=== PATIENT | male | born 1940 | race Caucasian/White ===

== ENCOUNTER → 2017-06-20 | Outpatient (CLI) | payer MEDICARE ==
[2017-06-20 13:49] LABS: BASOPHILS ABSOLUTE AUTO 0.12 K/mm3 (0.00-0.23); BASOPHILS PERCENT AUTO 1 % (0-2); EOSINOPHILS ABSOLUTE AUTO 0.59 K/mm3 (0.00-0.68); EOSINOPHILS PERCENT AUTO 6 % (0-6); Hemoglobin 11.8 g/dL (13.5-17.5); IMMATURE GRAN ABSOLUTE AUTO 0.03 K/mm3 (0.00-0.10); IMMATURE GRAN PERCENT AUTO 0 % (0-1); LYMPHOCYTES ABSOLUTE AUTO 3.35 K/mm3 (0.84-5.20); LYMPHOCYTES PERCENT AUTO 32 % (21-46); MONOCYTES ABSOLUTE AUTO 0.85 K/mm3 (0.16-1.47); MONOCYTES PERCENT AUTO 8 % (4-13); Mean Corpuscular HGB 29.3 pg (26.0-34.0); Mean Corpuscular HGB Conc 31.9 g/dL (31.5-36.5); Mean Corpuscular Volume 92 fL (80-100); Mean Platelet Volume 10.3 fL (9.1-12.4); NEUTROPHILS ABSOLUTE AUTO 5.67 K/mm3 (1.96-9.15); NEUTROPHILS PERCENT AUTO 53 % (41-73); Platelet Count 243 K/mm3 (150-400); RDW Coefficient Variation 13.2 % (11.7-14.2); RDW Standard Deviation 43.8 fL (35.1-46.3); Red Blood Cell Count 4.03 M/mm3 (4.30-5.90); White Blood Cell Count 10.61 K/mm3 (4.00-11.30)
[2017-06-20 14:21] LABS: Alanine Aminotransfer (ALT/SGP 30 U/L (12-78); Albumin, Blood 3.8 g/dL (3.4-5.0); Albumin/Globulin Ratio 0.8 (0.8-1.8); Alk Phos 108 U/L (50-136); Anion Gap 9 mmol/L (6-16); Aspartate Aminotrans (AST/SGOT 17 U/L (12-37); Bilirubin, Total 0.4 mg/dL (0.1-1.0); Blood Urea Nitrogen 32 mg/dL (8-24); Bun/Creatinine Ratio 27.8 (12.0-20.0); CO2, Blood 25 mmol/L (21-32); Calcium, Blood 9.7 mg/dL (8.5-10.1); Chloride, Blood 103 mmol/L (98-108); Cholesterol 178 mg/dL (50-200); Creatinine, Blood 1.15 mg/dL (0.60-1.20); Globulin, Blood 4.6 g/dL (2.2-4.0); Glomerular Filtration Rate >60 (60-); Glucose, Blood 273 mg/dL (70-99); HDL Cholesterol 44 mg/dL (>39); LDL/HDL RATIO 1.7; Low Density Lipoprotein Chol 77 mg/dL (0-110); Potassium, Blood 4.7 mmol/L (3.5-5.5); Sodium, Blood 137 mmol/L (136-145); Total Protein, Blood 8.4 g/dL (6.4-8.2); Triglycerides 287 mg/dL (30-160); Very Low Density Lipoprot Chol 57 mg/dL (6-32)
== END ==
LOC: LAB SHORT 13:27 → LAB 13:27
PROVIDERS: Nurse Practitioner Family
DX: E11.9 Type 2 diabetes mellitus without complications (principal); E55.9 Vitamin D deficiency, unspecified; E78.5 Hyperlipidemia, unspecified; I10 Essential (primary) hypertension; R53.83 Other fatigue
CPT/HCPCS: 80053; 80061; 82306; 84443; 85025

== ENCOUNTER → 2017-07-06 | Outpatient (CLI) | payer MEDICARE | END | disposition home or self-care (01) | LOC: LAB SHORT 13:38 → LAB 13:38 | DX: E11.621 Type 2 diabetes mellitus with foot ulcer (principal); L97.519 Non-pressure chronic ulcer of other part of right foot with unspecified severity; F11.20 Opioid dependence, uncomplicated; F17.200 Nicotine dependence, unspecified, uncomplicated | CPT/HCPCS: 87070; 87077; 87186; 87205 ==

== ENCOUNTER → 2017-11-08 | Outpatient (CLI) | payer MEDICARE | END | disposition home or self-care (01) | LOC: LAB SHORT 14:02 → LAB 14:02 | DX: E11.49 Type 2 diabetes mellitus with other diabetic neurological complication (principal); L08.9 Local infection of the skin and subcutaneous tissue, unspecified | CPT/HCPCS: 87070; 87077; 87147; 87186; 87205 ==

== ENCOUNTER 2018-07-13 07:35 | Day surgery (SDC) | payer MEDICARE | END 2018-07-13 23:05 | disposition home or self-care (01) | LOC: WOUND 07:35 | DX: E11.622 Type 2 diabetes mellitus with other skin ulcer (principal); E11.621 Type 2 diabetes mellitus with foot ulcer; L97.812 Non-pressure chronic ulcer of other part of right lower leg with fat layer exposed; L89.893 Pressure ulcer of other site, stage 3; E11.42 Type 2 diabetes mellitus with diabetic polyneuropathy; E11.51 Type 2 diabetes mellitus with diabetic peripheral angiopathy without gangrene; I87.2 Venous insufficiency (chronic) (peripheral); F41.9 Anxiety disorder, unspecified; F32.9 Major depressive disorder, single episode, unspecified; E78.5 Hyperlipidemia, unspecified; I10 Essential (primary) hypertension; I25.10 Atherosclerotic heart disease of native coronary artery without angina pectoris; F17.210 Nicotine dependence, cigarettes, uncomplicated | CPT/HCPCS: G0463 ==

== ENCOUNTER 2018-07-18 10:42 | Day surgery (SDC) | payer MEDICARE | END 2018-07-18 22:44 | disposition home or self-care (01) | LOC: WOUND 10:42 | DX: E11.622 Type 2 diabetes mellitus with other skin ulcer (principal); L97.812 Non-pressure chronic ulcer of other part of right lower leg with fat layer exposed; E11.621 Type 2 diabetes mellitus with foot ulcer; L97.412 Non-pressure chronic ulcer of right heel and midfoot with fat layer exposed; L89.613 Pressure ulcer of right heel, stage 3; E11.42 Type 2 diabetes mellitus with diabetic polyneuropathy; I87.2 Venous insufficiency (chronic) (peripheral); I25.10 Atherosclerotic heart disease of native coronary artery without angina pectoris; I10 Essential (primary) hypertension; E11.51 Type 2 diabetes mellitus with diabetic peripheral angiopathy without gangrene; F17.200 Nicotine dependence, unspecified, uncomplicated; E78.5 Hyperlipidemia, unspecified ==

== ENCOUNTER 2018-07-27 00:18 | Day surgery (SDC) | payer MEDICARE | END 2018-07-28 23:00 | disposition home or self-care (01) | LOC: WOUND 00:18 | DX: E11.622 Type 2 diabetes mellitus with other skin ulcer (principal); L97.812 Non-pressure chronic ulcer of other part of right lower leg with fat layer exposed; L89.613 Pressure ulcer of right heel, stage 3; G89.29 Other chronic pain; E11.40 Type 2 diabetes mellitus with diabetic neuropathy, unspecified; F17.200 Nicotine dependence, unspecified, uncomplicated; I87.2 Venous insufficiency (chronic) (peripheral); I25.10 Atherosclerotic heart disease of native coronary artery without angina pectoris; I10 Essential (primary) hypertension; E11.51 Type 2 diabetes mellitus with diabetic peripheral angiopathy without gangrene | CPT/HCPCS: Q4196 ==

== ENCOUNTER 2018-08-03 00:17 | Day surgery (SDC) | payer MEDICARE | END 2018-08-03 23:17 | disposition home or self-care (01) | LOC: WOUND 00:17 | DX: E11.622 Type 2 diabetes mellitus with other skin ulcer (principal); L97.811 Non-pressure chronic ulcer of other part of right lower leg limited to breakdown of skin; L89.893 Pressure ulcer of other site, stage 3; I87.2 Venous insufficiency (chronic) (peripheral); E11.42 Type 2 diabetes mellitus with diabetic polyneuropathy; E11.40 Type 2 diabetes mellitus with diabetic neuropathy, unspecified; E11.51 Type 2 diabetes mellitus with diabetic peripheral angiopathy without gangrene; I25.10 Atherosclerotic heart disease of native coronary artery without angina pectoris; I10 Essential (primary) hypertension; F41.9 Anxiety disorder, unspecified; F32.9 Major depressive disorder, single episode, unspecified; E78.5 Hyperlipidemia, unspecified; F17.200 Nicotine dependence, unspecified, uncomplicated | CPT/HCPCS: Q4196 ==

== ENCOUNTER 2018-08-10 00:35 | Day surgery (SDC) | payer MEDICARE | END 2018-08-10 22:49 | disposition home or self-care (01) | LOC: WOUND 00:35 | DX: E11.621 Type 2 diabetes mellitus with foot ulcer (principal); E11.622 Type 2 diabetes mellitus with other skin ulcer; L97.812 Non-pressure chronic ulcer of other part of right lower leg with fat layer exposed; L97.511 Non-pressure chronic ulcer of other part of right foot limited to breakdown of skin; E11.42 Type 2 diabetes mellitus with diabetic polyneuropathy; E11.51 Type 2 diabetes mellitus with diabetic peripheral angiopathy without gangrene; E11.40 Type 2 diabetes mellitus with diabetic neuropathy, unspecified; I87.2 Venous insufficiency (chronic) (peripheral); I10 Essential (primary) hypertension; F41.9 Anxiety disorder, unspecified; F32.9 Major depressive disorder, single episode, unspecified; E78.5 Hyperlipidemia, unspecified; F17.200 Nicotine dependence, unspecified, uncomplicated; I25.10 Atherosclerotic heart disease of native coronary artery without angina pectoris | CPT/HCPCS: Q4196 ==

== ENCOUNTER 2018-08-17 00:35 | Day surgery (SDC) | payer MEDICARE | END 2018-08-17 23:08 | disposition home or self-care (01) | LOC: WOUND 00:35 | DX: L89.613 Pressure ulcer of right heel, stage 3 (principal); E11.621 Type 2 diabetes mellitus with foot ulcer; L97.412 Non-pressure chronic ulcer of right heel and midfoot with fat layer exposed; I87.2 Venous insufficiency (chronic) (peripheral); E11.42 Type 2 diabetes mellitus with diabetic polyneuropathy; G89.29 Other chronic pain; E78.5 Hyperlipidemia, unspecified; I10 Essential (primary) hypertension; F17.200 Nicotine dependence, unspecified, uncomplicated | CPT/HCPCS: Q4196 ==

== ENCOUNTER 2018-08-31 08:54 | Day surgery (SDC) | payer MEDICARE, OTHER | END 2018-09-01 00:03 | disposition home or self-care (01) | LOC: WOUND 08:54 | DX: L89.893 Pressure ulcer of other site, stage 3 (principal); E11.42 Type 2 diabetes mellitus with diabetic polyneuropathy; E11.51 Type 2 diabetes mellitus with diabetic peripheral angiopathy without gangrene; I73.9 Peripheral vascular disease, unspecified; I87.2 Venous insufficiency (chronic) (peripheral); I25.10 Atherosclerotic heart disease of native coronary artery without angina pectoris; I10 Essential (primary) hypertension; F41.9 Anxiety disorder, unspecified; F32.9 Major depressive disorder, single episode, unspecified; E78.5 Hyperlipidemia, unspecified; F17.200 Nicotine dependence, unspecified, uncomplicated | CPT/HCPCS: Q4196 ==

== ENCOUNTER 2018-09-07 08:41 | Day surgery (SDC) | payer MEDICARE, OTHER | END 2018-09-07 23:35 | disposition home or self-care (01) | LOC: WOUND 08:41 | DX: L89.893 Pressure ulcer of other site, stage 3 (principal); E11.621 Type 2 diabetes mellitus with foot ulcer; L97.512 Non-pressure chronic ulcer of other part of right foot with fat layer exposed; I87.2 Venous insufficiency (chronic) (peripheral); E11.42 Type 2 diabetes mellitus with diabetic polyneuropathy | CPT/HCPCS: 87071; 87075; 87077; 87186; 87205; Q4196 ==

== ENCOUNTER 2018-09-14 08:41 | Day surgery (SDC) | payer MEDICARE, OTHER | END 2018-09-14 23:28 | disposition home or self-care (01) | LOC: WOUND 08:41 | DX: L89.613 Pressure ulcer of right heel, stage 3 (principal); E11.621 Type 2 diabetes mellitus with foot ulcer; L97.511 Non-pressure chronic ulcer of other part of right foot limited to breakdown of skin; E11.40 Type 2 diabetes mellitus with diabetic neuropathy, unspecified; F17.200 Nicotine dependence, unspecified, uncomplicated; F41.8 Other specified anxiety disorders; I10 Essential (primary) hypertension; E78.5 Hyperlipidemia, unspecified; E11.42 Type 2 diabetes mellitus with diabetic polyneuropathy; I25.10 Atherosclerotic heart disease of native coronary artery without angina pectoris | CPT/HCPCS: Q4196 ==

== ENCOUNTER 2018-09-28 08:39 | Day surgery (SDC) | payer MEDICARE, OTHER | END 2018-09-29 00:15 | disposition home or self-care (01) | LOC: WOUND 08:39 | DX: L89.893 Pressure ulcer of other site, stage 3 (principal); E11.42 Type 2 diabetes mellitus with diabetic polyneuropathy; E11.51 Type 2 diabetes mellitus with diabetic peripheral angiopathy without gangrene; I73.9 Peripheral vascular disease, unspecified; I10 Essential (primary) hypertension; I25.10 Atherosclerotic heart disease of native coronary artery without angina pectoris; I87.2 Venous insufficiency (chronic) (peripheral); F41.9 Anxiety disorder, unspecified; F32.9 Major depressive disorder, single episode, unspecified; E78.5 Hyperlipidemia, unspecified; F17.200 Nicotine dependence, unspecified, uncomplicated ==

== ENCOUNTER 2018-10-05 01:00 | Day surgery (SDC) | payer MEDICARE, OTHER | END 2018-10-05 23:50 | disposition home or self-care (01) | LOC: WOUND 01:00 | PROC: 0JBQ0ZZ Excision of Right Foot Subcutaneous Tissue and Fascia, Open Approach (ICD-10-PCS; principal; 2018-10-05) | DX: E11.621 Type 2 diabetes mellitus with foot ulcer (principal); L97.412 Non-pressure chronic ulcer of right heel and midfoot with fat layer exposed; E11.40 Type 2 diabetes mellitus with diabetic neuropathy, unspecified; I10 Essential (primary) hypertension; E11.42 Type 2 diabetes mellitus with diabetic polyneuropathy; I87.2 Venous insufficiency (chronic) (peripheral); F32.9 Major depressive disorder, single episode, unspecified; F17.200 Nicotine dependence, unspecified, uncomplicated; Z89.421 Acquired absence of other right toe(s) ==

== ENCOUNTER 2018-10-12 02:39 | Day surgery (SDC) | payer MEDICARE, OTHER | END 2018-10-12 23:19 | disposition home or self-care (01) | LOC: WOUND 02:39 | DX: E11.621 Type 2 diabetes mellitus with foot ulcer (principal); L97.511 Non-pressure chronic ulcer of other part of right foot limited to breakdown of skin; E11.42 Type 2 diabetes mellitus with diabetic polyneuropathy; I87.2 Venous insufficiency (chronic) (peripheral); E11.40 Type 2 diabetes mellitus with diabetic neuropathy, unspecified; E78.5 Hyperlipidemia, unspecified; I10 Essential (primary) hypertension; F17.200 Nicotine dependence, unspecified, uncomplicated ==

== ENCOUNTER 2018-10-19 02:15 | Day surgery (SDC) | payer MEDICARE, OTHER | END 2018-10-19 23:27 | disposition home or self-care (01) | LOC: WOUND 02:15 | DX: E11.621 Type 2 diabetes mellitus with foot ulcer (principal); L97.512 Non-pressure chronic ulcer of other part of right foot with fat layer exposed; E11.42 Type 2 diabetes mellitus with diabetic polyneuropathy; I87.2 Venous insufficiency (chronic) (peripheral) | CPT/HCPCS: 87071; 87075; 87077; 87186; 87205 ==

== ENCOUNTER 2018-10-24 00:29 | Day surgery (SDC) | payer MEDICARE, OTHER | END 2018-10-24 22:48 | disposition home or self-care (01) | LOC: WOUND 00:29 | DX: E11.621 Type 2 diabetes mellitus with foot ulcer (principal); L97.519 Non-pressure chronic ulcer of other part of right foot with unspecified severity; E11.42 Type 2 diabetes mellitus with diabetic polyneuropathy; I87.2 Venous insufficiency (chronic) (peripheral); I10 Essential (primary) hypertension; F17.200 Nicotine dependence, unspecified, uncomplicated | CPT/HCPCS: G0463 ==

== ENCOUNTER 2018-10-31 00:21 | Day surgery (SDC) | payer MEDICARE, OTHER | END 2018-10-31 23:22 | disposition home or self-care (01) | LOC: WOUND 00:21 | DX: E11.621 Type 2 diabetes mellitus with foot ulcer (principal); L97.519 Non-pressure chronic ulcer of other part of right foot with unspecified severity; E11.42 Type 2 diabetes mellitus with diabetic polyneuropathy; I87.2 Venous insufficiency (chronic) (peripheral); G89.29 Other chronic pain; E11.40 Type 2 diabetes mellitus with diabetic neuropathy, unspecified; E78.5 Hyperlipidemia, unspecified; I10 Essential (primary) hypertension | CPT/HCPCS: G0463 ==

== ENCOUNTER 2018-11-06 08:00 | Day surgery (SDC) | payer MEDICARE, OTHER | END 2018-11-06 23:00 | disposition home or self-care (01) | LOC: WOUND 08:00 | DX: E11.621 Type 2 diabetes mellitus with foot ulcer (principal); L97.412 Non-pressure chronic ulcer of right heel and midfoot with fat layer exposed; E11.42 Type 2 diabetes mellitus with diabetic polyneuropathy; I87.2 Venous insufficiency (chronic) (peripheral); I10 Essential (primary) hypertension; Z89.431 Acquired absence of right foot ==

== ENCOUNTER 2018-11-08 08:20 | Day surgery (SDC) | payer MEDICARE, OTHER | END 2018-11-08 23:34 | disposition home or self-care (01) | LOC: WOUND 08:20 | DX: E11.621 Type 2 diabetes mellitus with foot ulcer (principal); L97.519 Non-pressure chronic ulcer of other part of right foot with unspecified severity; E11.42 Type 2 diabetes mellitus with diabetic polyneuropathy; I87.2 Venous insufficiency (chronic) (peripheral); I10 Essential (primary) hypertension; E78.5 Hyperlipidemia, unspecified; F17.200 Nicotine dependence, unspecified, uncomplicated ==

== ENCOUNTER 2018-11-12 00:27 | Day surgery (SDC) | payer MEDICARE, OTHER | END 2018-11-12 22:48 | disposition home or self-care (01) | LOC: WOUND 00:27 | DX: E11.621 Type 2 diabetes mellitus with foot ulcer (principal); L97.519 Non-pressure chronic ulcer of other part of right foot with unspecified severity; E11.42 Type 2 diabetes mellitus with diabetic polyneuropathy; I87.2 Venous insufficiency (chronic) (peripheral); I10 Essential (primary) hypertension; F17.200 Nicotine dependence, unspecified, uncomplicated ==

== ENCOUNTER 2018-11-14 00:14 | Day surgery (SDC) | payer MEDICARE, OTHER | END 2018-11-14 22:46 | disposition home or self-care (01) | LOC: WOUND 00:14 | DX: E11.621 Type 2 diabetes mellitus with foot ulcer (principal); L97.519 Non-pressure chronic ulcer of other part of right foot with unspecified severity; E11.42 Type 2 diabetes mellitus with diabetic polyneuropathy; I87.2 Venous insufficiency (chronic) (peripheral); E78.5 Hyperlipidemia, unspecified; I10 Essential (primary) hypertension; F17.200 Nicotine dependence, unspecified, uncomplicated ==

== ENCOUNTER 2018-11-16 00:43 | Day surgery (SDC) | payer MEDICARE | END 2018-11-17 00:13 | disposition home or self-care (01) | LOC: WOUND 00:43 | DX: E11.621 Type 2 diabetes mellitus with foot ulcer (principal); L97.519 Non-pressure chronic ulcer of other part of right foot with unspecified severity; I87.2 Venous insufficiency (chronic) (peripheral); G89.29 Other chronic pain; E78.5 Hyperlipidemia, unspecified; I10 Essential (primary) hypertension; E11.42 Type 2 diabetes mellitus with diabetic polyneuropathy ==

== ENCOUNTER 2018-11-20 00:30 | Day surgery (SDC) | payer MEDICARE | END 2018-11-20 22:51 | disposition home or self-care (01) | LOC: WOUND 00:30 | DX: E11.621 Type 2 diabetes mellitus with foot ulcer (principal); E11.622 Type 2 diabetes mellitus with other skin ulcer; L97.519 Non-pressure chronic ulcer of other part of right foot with unspecified severity; L97.819 Non-pressure chronic ulcer of other part of right lower leg with unspecified severity; I87.2 Venous insufficiency (chronic) (peripheral); E11.42 Type 2 diabetes mellitus with diabetic polyneuropathy; E11.51 Type 2 diabetes mellitus with diabetic peripheral angiopathy without gangrene; I73.9 Peripheral vascular disease, unspecified; I10 Essential (primary) hypertension; I25.10 Atherosclerotic heart disease of native coronary artery without angina pectoris ==

== ENCOUNTER 2018-11-23 02:30 | Day surgery (SDC) | payer MEDICARE, OTHER | END 2018-11-23 22:48 | disposition home or self-care (01) | LOC: WOUND 02:30 | DX: E11.621 Type 2 diabetes mellitus with foot ulcer (principal); L97.512 Non-pressure chronic ulcer of other part of right foot with fat layer exposed; E11.42 Type 2 diabetes mellitus with diabetic polyneuropathy; I87.2 Venous insufficiency (chronic) (peripheral); I10 Essential (primary) hypertension; F17.200 Nicotine dependence, unspecified, uncomplicated ==

== ENCOUNTER 2018-11-26 07:59 | Day surgery (SDC) | payer MEDICARE | END 2018-11-26 23:00 | disposition home or self-care (01) | LOC: WOUND 07:59 | DX: E11.621 Type 2 diabetes mellitus with foot ulcer (principal); L97.419 Non-pressure chronic ulcer of right heel and midfoot with unspecified severity; I87.2 Venous insufficiency (chronic) (peripheral); E11.42 Type 2 diabetes mellitus with diabetic polyneuropathy; E11.51 Type 2 diabetes mellitus with diabetic peripheral angiopathy without gangrene; I73.9 Peripheral vascular disease, unspecified; I10 Essential (primary) hypertension; I25.10 Atherosclerotic heart disease of native coronary artery without angina pectoris; F17.200 Nicotine dependence, unspecified, uncomplicated | CPT/HCPCS: G0463 ==

== ENCOUNTER 2018-11-30 12:38 | Day surgery (SDC) | payer MEDICARE, OTHER | END 2018-11-30 22:46 | disposition home or self-care (01) | LOC: WOUND 12:38 | DX: E11.621 Type 2 diabetes mellitus with foot ulcer (principal); L97.511 Non-pressure chronic ulcer of other part of right foot limited to breakdown of skin; E11.42 Type 2 diabetes mellitus with diabetic polyneuropathy; I87.2 Venous insufficiency (chronic) (peripheral); E78.5 Hyperlipidemia, unspecified; I10 Essential (primary) hypertension ==

== ENCOUNTER 2018-12-14 01:55 | Day surgery (SDC) | payer MEDICARE, OTHER | END 2018-12-14 23:09 | disposition home or self-care (01) | LOC: WOUND 01:55 | DX: E11.621 Type 2 diabetes mellitus with foot ulcer (principal); L97.511 Non-pressure chronic ulcer of other part of right foot limited to breakdown of skin; E11.42 Type 2 diabetes mellitus with diabetic polyneuropathy; F17.200 Nicotine dependence, unspecified, uncomplicated; F41.9 Anxiety disorder, unspecified; F32.9 Major depressive disorder, single episode, unspecified; E78.5 Hyperlipidemia, unspecified; I10 Essential (primary) hypertension ==

== ENCOUNTER 2018-12-28 00:16 | Day surgery (SDC) | payer MEDICARE, OTHER | END 2018-12-28 23:50 | disposition home or self-care (01) | LOC: WOUND 00:16 | DX: E11.621 Type 2 diabetes mellitus with foot ulcer (principal); L97.519 Non-pressure chronic ulcer of other part of right foot with unspecified severity; E11.42 Type 2 diabetes mellitus with diabetic polyneuropathy; I87.2 Venous insufficiency (chronic) (peripheral); I10 Essential (primary) hypertension; F17.200 Nicotine dependence, unspecified, uncomplicated; Z89.421 Acquired absence of other right toe(s) | CPT/HCPCS: G0463 ==

== ENCOUNTER 2019-03-17 15:18 | Inpatient (IN) | payer MEDICARE ==
[~2019-03-17] VITALS: Ht 188 cm; Wt 87.4 kg
[2019-03-17 16:04] LABS: BASOPHILS ABSOLUTE AUTO 0.05 K/mm3 (0.00-0.23); BASOPHILS PERCENT AUTO 1 % (0-2); EOSINOPHILS ABSOLUTE AUTO 0.02 K/mm3 (0.00-0.68); EOSINOPHILS PERCENT AUTO 0 % (0-6); Hematocrit 30.6 % (37.0-53.0); IMMATURE GRAN ABSOLUTE AUTO 0.07 K/mm3 (0.00-0.10); IMMATURE GRAN PERCENT AUTO 1 % (0-1); LYMPHOCYTES ABSOLUTE AUTO 1.04 K/mm3 (0.84-5.20); LYMPHOCYTES PERCENT AUTO 14 % (21-46); MONOCYTES ABSOLUTE AUTO 0.69 K/mm3 (0.16-1.47); MONOCYTES PERCENT AUTO 9 % (4-13); Mean Corpuscular HGB 29.2 pg (26.0-34.0); Mean Corpuscular HGB Conc 32.7 g/dL (31.5-36.5); Mean Corpuscular Volume 90 fL (80-100); Mean Platelet Volume 9.5 fL (9.1-12.4); NEUTROPHILS ABSOLUTE AUTO 5.74 K/mm3 (1.96-9.15); NEUTROPHILS PERCENT AUTO 75 % (41-73); Platelet Count 257 K/mm3 (150-400); RDW Coefficient Variation 12.9 % (11.7-14.2); RDW Standard Deviation 41.9 fL (35.1-46.3); Red Blood Cell Count 3.42 M/mm3 (4.30-5.90); White Blood Cell Count 7.61 K/mm3 (4.00-11.30)
[2019-03-17 16:33] LABS: Alanine Aminotransfer (ALT/SGP 19 U/L (12-78); Albumin, Blood 2.6 g/dL (3.4-5.0); Albumin/Globulin Ratio 0.5 (0.8-1.8); Alk Phos 104 U/L (50-136); Anion Gap 8 mmol/L (6-16); Aspartate Aminotrans (AST/SGOT 8 U/L (12-37); Bilirubin, Total 0.6 mg/dL (0.1-1.0); Blood Urea Nitrogen 32 mg/dL (8-24); Bun/Creatinine Ratio 28.8 (12.0-20.0); CO2, Blood 22 mmol/L (21-32); Calcium, Blood 9.6 mg/dL (8.5-10.1); Chloride, Blood 101 mmol/L (98-108); Creatinine, Blood 1.11 mg/dL (0.60-1.20); Globulin, Blood 4.8 g/dL (2.2-4.0); Glomerular Filtration Rate >60 (60-); Glucose, Blood 518 mg/dL (70-99); Potassium, Blood 4.4 mmol/L (3.5-5.5); Sodium, Blood 131 mmol/L (136-145); Total Protein, Blood 7.4 g/dL (6.4-8.2)
[2019-03-17] MEDS ORDERED: SUBOXONE 8 MG-1 EACH PO (16:50)
[2019-03-17] MEDS ORDERED: POTA8 PO (16:50)
[2019-03-17] MEDS ORDERED: LOSA25 PO (16:50)
[2019-03-17] MEDS ORDERED: AMLODIPINE-OLM1 EAC1 PO (16:51)
[2019-03-17] MEDS ORDERED: CILO100 PO (16:51)
[2019-03-17] MEDS ORDERED: FURO20 PO (16:52)
[2019-03-17] MEDS ORDERED: ROSU5 PO (16:53)
[2019-03-17] MEDS ORDERED: METO25ER PO (16:53)
[2019-03-17] MEDS ORDERED: GLIP10 PO (16:53)
[2019-03-17] MEDS ORDERED: PIOG15 PO (16:53)
[2019-03-17 16:56] LABS: Bilirubin, Urine Neg (Neg); Blood, Urine 2+ (Neg); Glucose Qualitative, Urine 4+ (Neg); Ketones, Urine Neg (Neg); Leukocyte Esterase, Urine 3+ (Neg); Nitrite, Urine Pos (Neg); Protein, Urine 2+ (Neg); Source, Urine Catheter; Urobilinogen, Urine NORM (Normal)
[2019-03-17 17:13] LABS: Appearance, Urine Cloudy (Clear); Color, Urine Yellow (P-Yellow)
[2019-03-17 17:15] LABS: White Blood Cells, Urine 50-100 /hpf (0-5)
[2019-03-17 17:16] LABS: Bacteria Mod /hpf; Squamous Epithelial Cells Rare /hpf (Few)
[2019-03-17 18:12] LABS: Glucose, Blood 448 mg/dL (70-99)
[2019-03-17] MEDS ORDERED: GLIP10ER PO (18:17)
[2019-03-17] MEDS ORDERED: METO25 PO (18:17)
[2019-03-17] MEDS ORDERED: AMLO10 PO (18:18)
[2019-03-17] MEDS ORDERED: LOSARTAN-HCTZ1 EAC2 PO (18:19)
--- NOTE | 2019-03-17 21:30 | NUR ---
ADMISSION NOTE RECIEVED HAND OFF FROM ER NURSE USING SBAR. TRANSPORTED TO ROOM 364 VIA STRETCHER. TRANSFERED TO BED WITH FULL STAFF ASSISTANCE, TOLERATED WELL. LYING IN SEMI FOWLERS WITH EYES OPEN. AAO X3, GARDNER, FOLLOWS ALL COMMANDS. ORIENTED TO ROOM, CALL SYSTEM, AND POC, VOICES UNDERSTANDING. RESPIRATIONS EVEN AND UNLABORED ON ROOM AIR. LUNG SOUNDS CLEAR BILATERALLY. ABDOMEN SOFT AND NONDISTEDNED. BOWEL SOUNDS PRESENT IN ALL QUADS. LEFT WRIST 22G PIV IS PATEMT, INFUSING NS AT 200 ML/HR PER MD ORDERS. LEFT AC 22G SL PIV IS PATENT, FLUSING WITH EASE. CONTINENT OF BLADDER AND BOWEL. URGE INCONTINENCE REPORTED, WEARS PULL UPS. REDNESS NOTED TO SCROTUN AND PENIS, POWDER APPLIED WHEN PULL UP CHANGED. BLE WITH WOUNDS NOTED, SEE CHART FOR PICS. WOUNDS CLEANED AND DRESSED. ADMISSION ASSESSMENT IN PROGRESS. SAFETY MEASURES IN PLACE. WILL [id number] TO MONITOR.
--- NOTE | 2019-03-18 03:00 | NUR ---
PT WONDERED OUT LOUD IF HE WOULD BE GIVEN ANYTHING TO EAT TODAY. WHEN ASKED IF HE WAS HUNGRY, HE STATED THAT HE WAS. WHEN ASKE WHEN HE LAST ATE ANYTHING, HE STATED THAT IT HAD BEEN 3 DAYS. WHEN COUNTING BACK HE VOICED, "I DIDN'T EAT ANYTHING THE DAY I CAME HERE, AND I DIDN'T EAT ANYTHING THE DAY BEFORE BECAUSE I WASN'T HUNGRY." PT PROVIDED WITH ALEX CRACKERS, PEANUT BUTTER, AND CHOCOLATE PUDDING. DENEIS FURTHER NEEDS AT THIS TIME. SAFETY MEASURES IN PLACE. WILL CONTINUE TO MONITOR.
[2019-03-18 04:50] LABS: Magnesium, Blood 2.1 mg/dL (1.6-2.4); Troponin I 0.048 ng/mL (0.000-0.040)
[2019-03-18 04:53] LABS: Anion Gap 8 mmol/L (6-16); Blood Urea Nitrogen 21 mg/dL (8-24); Bun/Creatinine Ratio 24.8 (12.0-20.0); CO2, Blood 24 mmol/L (21-32); Calcium, Blood 8.6 mg/dL (8.5-10.1); Chloride, Blood 109 mmol/L (98-108); Creatinine, Blood 0.85 mg/dL (0.60-1.20); Glomerular Filtration Rate >60 (60-); Glucose, Blood 96 mg/dL (70-99); Potassium, Blood 3.8 mmol/L (3.5-5.5); Sodium, Blood 141 mmol/L (136-145)
--- NOTE | 2019-03-18 06:35 | NUR ---
SHIFT SUMMARY LYING IN SEMI FOWLERS WITH EYES CLOSED. HAS RESTED WELL SINCE ADMISSION. HAD DENIED FURTHER HUNGER, PAIN, OR DISCOMFORT. LAST BGL WAS 70, NO COVERAGE NEEDED. SAFETY MEAURES IN PLACE. WILL GIVE HAND OFF TO ONCOMING SHIFT USING SBAR.
--- NOTE | 2019-03-18 12:30 | NUR ---
ECHOCARDIOGRAM COMPLETED
--- NOTE | 2019-03-18 16:02 | NUR ---
SHIFT SUMMARY: PT IS A/O X 4 AND HAS NO C/O PAIN OR DISCOMFORT. RADIO NEWS WRITER REPORTS SINUS RHYTHM AT 92 TODAY. CBGS HAVE BEEN COVERED WITH SLIDING SCALE ORDERED. PT HAS NO S/S OF HYPER/HYPO GLYCEMIA AND HAS A FAIR APPETITE. IV ABO WERE CHANGED THIS MORNING BY HOSPITALIST BASED ON THE RESULTS OF THE BLOOD CULTURES. IV ABO INFUSED ORDERED WITH NO ADVERSE REACTIONS OBSERVED. WOUND DRESSINGS WERE CHANGED PER ORDER. PT WORKED WITH THERAPIES TODAY AND IS ABLE TO WALK STAND BY ASSIST WITH A FWW. PT IS VERY PLEASANT AND COOPERATIVE WITH HIS CARE. HE IS ABLE TO MAKE HIS NEEDS KNOWN AND CALLS FOR HELP WHEN NEEDED. HE IS RESTING IN BED WITH HIS CALL LIGHT IN REACH.
--- NOTE | 2019-03-19 06:18 | NUR ---
SHIFT SUMMARY NO ACUTE CHANGES TO REPORT T/O THE NIGHT. PT HAS RESTED IN BED COMFORTABLY. IV ABX INFUSED ORDERS. DRESSINGS TO FEET INTACT. PT HAS BEEN INDEPENDENT AT BEDSIDE, BUT HAS REQUIRED ASSISTANCE TO THE BSC. PT HAS DENIED NEEDS THROUGH MOST OF THE NIGHT AND DENIES PAIN. VITALS STABLE. ASSESSMENT UNCHANGED. BED IN LOWEST POSITION, CALL LIGHT WITHIN REACH. WILL CONTINUE TO MONITOR AND REPORT TO ONCOMING RN.
--- NOTE | 2019-03-19 06:23 | NUR ---
HYPOTENSIVE PT HYPOTENSIVE THIS AM. DR. ANGELES CALLED AND NOTIFIED, RECEIVED ORDER TO RESUME [place] THAT WAS DC'D YESTERDAY.
[2019-03-19] MEDS ORDERED: INSULANPEN SC (15:38)
[2019-03-19] MEDS ORDERED: JUVEN PACKET1 EACH PO (15:38)
[2019-03-19] MEDS ORDERED: CEPH500 PO (15:39)
--- NOTE | 2019-03-19 16:49 | NUR ---
SHIFT SUMMARY: PT HAS BEEN A/O X 4 WITH C/O BACK PAIN X 1 THIS AFTERNOON AND HE REPORTS THAT TYLENOL WAS EFFECTIVE. IV FLUIDS HAVE INFUSED ORDERED WITH NO ADVERSE REACTIONS. DRESSINGS TO FEET WERE CHANGED ORDERED. PT WAS ASSISTED TO TAKE A SHOWER. PT CONTINUES TO USE THE URINAL AT THE BEDSIDE. TELE WAS DCD BY THE DOCTOR. THIS AFTERNOON THE DOCTOR ENTERED ORDERS TO DC TO . PT IS WORKING WITH THERAPY NOW AND CONTINUES TO WALK WITH STAND BY ASSIST WITH A FWW. HE IS ABLE TO MAKE HIS NEEDS KNOWN AND CALLS [facility] FOR HELP WHEN NEEDED. A MESSAGE WAS LEFT WITH HIS ABOUT HIS TRANSFER TO SNF. TRANSPORT WILL BE SOMETIME AFTER DINNER.
== END 2019-03-19 18:44 | DRG 638 ==
LOC: ER 15:18 → MEDS 19:01 → ENPENDDIS 03-19 15:26 → MEDS 03-19 18:44
PROVIDERS: Physician Assistant; ADMIT Internal Medicine
DX: E11.65 Type 2 diabetes mellitus with hyperglycemia (principal); I47.1 Supraventricular tachycardia; L03.115 Cellulitis of right lower limb; I31.9 Disease of pericardium, unspecified; N17.9 Acute kidney failure, unspecified; E11.621 Type 2 diabetes mellitus with foot ulcer; E11.628 Type 2 diabetes mellitus with other skin complications; E11.42 Type 2 diabetes mellitus with diabetic polyneuropathy; L97.519 Non-pressure chronic ulcer of other part of right foot with unspecified severity; Z79.4 Long term (current) use of insulin; I25.10 Atherosclerotic heart disease of native coronary artery without angina pectoris; E78.5 Hyperlipidemia, unspecified; Z95.5 Presence of coronary angioplasty implant and graft; Z89.431 Acquired absence of right foot; Z87.891 Personal history of nicotine dependence; Z66 Do not resuscitate
CPT/HCPCS: 36415; 73630; 80048; 80053; 81001; 82947; 83036; 83605; 83735; 84484; 85025; 85651; 86140; 87040; 87077; 87081; 87086; 87186; 93005; 93010; 93306; 96361; 96365; 96366; 96367; 97116; 97162; 97166; 97530; 97535; 99285-25; A9270; J0690; J1650; J1815; J2185; J2543; J3370; J3475; J7030; J7050

== ENCOUNTER 2019-07-01 01:21 | Day surgery (SDC) | payer MEDICARE ==
[~2019-07-01 01:21] MED LIST: AMLO10 PO; AMLODIPINE-OLM1 EAC1 PO; CEPH500 PO; CILO100 PO; FURO20 PO; GLIP10 PO; GLIP10ER PO; INSULANPEN SC; JUVEN PACKET1 EACH PO; LOSA25 PO; LOSARTAN-HCTZ1 EAC2 PO; METO25 PO; METO25ER PO; PIOG15 PO; POTA8 PO; ROSU5 PO; SUBOXONE 8 MG-1 EACH PO
== END 2019-07-01 22:57 | disposition home or self-care (01) ==
LOC: WOUND 01:21
DX: E11.621 Type 2 diabetes mellitus with foot ulcer (principal); E11.40 Type 2 diabetes mellitus with diabetic neuropathy, unspecified; I10 Essential (primary) hypertension; E78.5 Hyperlipidemia, unspecified; F17.200 Nicotine dependence, unspecified, uncomplicated; F41.9 Anxiety disorder, unspecified; F32.9 Major depressive disorder, single episode, unspecified; L97.412 Non-pressure chronic ulcer of right heel and midfoot with fat layer exposed; Z79.899 Other long term (current) drug therapy; Z79.4 Long term (current) use of insulin

== ENCOUNTER 2019-07-08 00:10 | Day surgery (SDC) | payer MEDICARE | END 2019-07-08 22:50 | disposition home or self-care (01) | LOC: WOUND 00:10 | DX: E11.621 Type 2 diabetes mellitus with foot ulcer (principal); L97.522 Non-pressure chronic ulcer of other part of left foot with fat layer exposed; L97.512 Non-pressure chronic ulcer of other part of right foot with fat layer exposed; E11.40 Type 2 diabetes mellitus with diabetic neuropathy, unspecified; I10 Essential (primary) hypertension; E78.5 Hyperlipidemia, unspecified ==

== ENCOUNTER 2019-07-15 00:10 | Day surgery (SDC) | payer MEDICARE | END 2019-07-15 22:59 | disposition home or self-care (01) | LOC: WOUND 00:10 | DX: E11.621 Type 2 diabetes mellitus with foot ulcer (principal); L97.422 Non-pressure chronic ulcer of left heel and midfoot with fat layer exposed; L97.511 Non-pressure chronic ulcer of other part of right foot limited to breakdown of skin; E11.40 Type 2 diabetes mellitus with diabetic neuropathy, unspecified; I10 Essential (primary) hypertension; F17.200 Nicotine dependence, unspecified, uncomplicated ==

== ENCOUNTER 2019-07-22 00:28 | Day surgery (SDC) | payer MEDICARE | END 2019-07-22 22:46 | disposition home or self-care (01) | LOC: WOUND 00:28 | DX: E11.621 Type 2 diabetes mellitus with foot ulcer (principal); E11.40 Type 2 diabetes mellitus with diabetic neuropathy, unspecified; I10 Essential (primary) hypertension; E78.5 Hyperlipidemia, unspecified; F41.8 Other specified anxiety disorders; L97.422 Non-pressure chronic ulcer of left heel and midfoot with fat layer exposed; L89.899 Pressure ulcer of other site, unspecified stage; Z79.899 Other long term (current) drug therapy; Z79.4 Long term (current) use of insulin ==

== ENCOUNTER 2019-08-19 00:30 | Day surgery (SDC) | payer MEDICARE | END 2019-08-19 23:34 | disposition home or self-care (01) | LOC: WOUND 00:30 | DX: E11.621 Type 2 diabetes mellitus with foot ulcer (principal); E11.40 Type 2 diabetes mellitus with diabetic neuropathy, unspecified; F17.200 Nicotine dependence, unspecified, uncomplicated; I10 Essential (primary) hypertension; E78.5 Hyperlipidemia, unspecified; F41.9 Anxiety disorder, unspecified; F32.9 Major depressive disorder, single episode, unspecified; L97.422 Non-pressure chronic ulcer of left heel and midfoot with fat layer exposed; L97.419 Non-pressure chronic ulcer of right heel and midfoot with unspecified severity; Z79.4 Long term (current) use of insulin; Z79.899 Other long term (current) drug therapy ==

== ENCOUNTER 2019-09-02 00:17 | Day surgery (SDC) | payer MEDICARE | END 2019-09-02 22:43 | disposition home or self-care (01) | LOC: WOUND 00:17 | DX: E11.621 Type 2 diabetes mellitus with foot ulcer (principal); E11.40 Type 2 diabetes mellitus with diabetic neuropathy, unspecified; F17.200 Nicotine dependence, unspecified, uncomplicated; F41.9 Anxiety disorder, unspecified; E78.5 Hyperlipidemia, unspecified; I10 Essential (primary) hypertension; L97.419 Non-pressure chronic ulcer of right heel and midfoot with unspecified severity; L97.422 Non-pressure chronic ulcer of left heel and midfoot with fat layer exposed; Z79.4 Long term (current) use of insulin; Z79.899 Other long term (current) drug therapy ==

== ENCOUNTER 2019-09-23 00:25 | Day surgery (SDC) | payer MEDICARE | END 2019-09-23 22:49 | disposition home or self-care (01) | LOC: WOUND 00:25 | DX: E11.621 Type 2 diabetes mellitus with foot ulcer (principal); E11.40 Type 2 diabetes mellitus with diabetic neuropathy, unspecified; F17.200 Nicotine dependence, unspecified, uncomplicated; F41.9 Anxiety disorder, unspecified; F32.9 Major depressive disorder, single episode, unspecified; E78.5 Hyperlipidemia, unspecified; I10 Essential (primary) hypertension; L97.422 Non-pressure chronic ulcer of left heel and midfoot with fat layer exposed; Z79.899 Other long term (current) drug therapy; Z79.4 Long term (current) use of insulin ==

== ENCOUNTER 2020-07-21 02:57 | Inpatient (IN) | payer MEDICARE ==
[~2020-07-21] VITALS: Ht 188 cm; Wt 68.0 kg
[2020-07-21 04:48] LABS: Alanine Aminotransfer (ALT/SGP 16 U/L (12-78); Albumin, Blood 2.5 g/dL (3.4-5.0); Albumin/Globulin Ratio 0.5 (0.8-1.8); Alk Phos 132 U/L (50-136); Anion Gap 8 mmol/L (6-16); Aspartate Aminotrans (AST/SGOT 16 U/L (12-37); BASOPHILS ABSOLUTE AUTO 0.11 K/mm3 (0.00-0.23); BASOPHILS PERCENT AUTO 1 % (0-2); Bilirubin, Total 0.6 mg/dL (0.1-1.0); Blood Urea Nitrogen 20 mg/dL (8-24); Bun/Creatinine Ratio 24.1 (12.0-20.0); CO2, Blood 24 mmol/L (21-32); Calcium, Blood 8.7 mg/dL (8.5-10.1); Chloride, Blood 103 mmol/L (98-108); Creatinine, Blood 0.83 mg/dL (0.60-1.20); EOSINOPHILS ABSOLUTE AUTO 0.09 K/mm3 (0.00-0.68); EOSINOPHILS PERCENT AUTO 1 % (0-6); Globulin, Blood 5.3 g/dL (2.2-4.0); Glomerular Filtration Rate >60 (60-); Glucose, Blood 350 mg/dL (70-99); Hematocrit 30.6 % (37.0-53.0); Hemoglobin 10.2 g/dL (13.5-17.5); IMMATURE GRAN ABSOLUTE AUTO 0.04 K/mm3 (0.00-0.10); IMMATURE GRAN PERCENT AUTO 0 % (0-1); LYMPHOCYTES ABSOLUTE AUTO 1.24 K/mm3 (0.84-5.20); LYMPHOCYTES PERCENT AUTO 11 % (21-46); MONOCYTES ABSOLUTE AUTO 0.75 K/mm3 (0.16-1.47); MONOCYTES PERCENT AUTO 6 % (4-13); Mean Corpuscular HGB 28.9 pg (26.0-34.0); Mean Corpuscular HGB Conc 33.3 g/dL (31.5-36.5); Mean Corpuscular Volume 87 fL (80-100); Mean Platelet Volume 8.6 fL (9.1-12.4); NEUTROPHILS ABSOLUTE AUTO 9.48 K/mm3 (1.96-9.15); NEUTROPHILS PERCENT AUTO 81 % (41-73); Platelet Count 431 K/mm3 (150-400); Potassium, Blood 3.3 mmol/L (3.5-5.5); RDW Coefficient Variation 12.2 % (11.7-14.2); RDW Standard Deviation 38.4 fL (35.1-46.3); Red Blood Cell Count 3.53 M/mm3 (4.30-5.90); Sodium, Blood 135 mmol/L (136-145); Total Protein, Blood 7.8 g/dL (6.4-8.2); White Blood Cell Count 11.71 K/mm3 (4.00-11.30)
--- NOTE | 2020-07-21 23:15 | NUR ---
PATIENT AWAKE IN BED WATCHING TV. NO APPARENT DISTRESS. NO NEEDS AT THIS TIME. WILL CONTINUE TO MONITOR.
--- NOTE | 2020-07-22 04:08 | NUR ---
SPAR MACHINE OPERATOR SUMMARY PT A/OX4, AWAKE MOST OF THE NIGHT. NO COMPLAINTS OF PAIN. PT LEFT HEEL ULCER WITH MODERATE AMOUNTS OF SEROSANGUINOUS DRAINAGE. 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 NO APPARENT DISTRESS TONIGHT, WILL CONTINUE TO MONITOR.
[2020-07-22 04:51] LABS: BASOPHILS ABSOLUTE AUTO 0.08 K/mm3 (0.00-0.23); BASOPHILS PERCENT AUTO 1 % (0-2); EOSINOPHILS ABSOLUTE AUTO 0.21 K/mm3 (0.00-0.68); EOSINOPHILS PERCENT AUTO 3 % (0-6); Hematocrit 24.8 % (37.0-53.0); Hemoglobin 8.2 g/dL (13.5-17.5); IMMATURE GRAN ABSOLUTE AUTO 0.03 K/mm3 (0.00-0.10); IMMATURE GRAN PERCENT AUTO 0 % (0-1); LYMPHOCYTES ABSOLUTE AUTO 1.78 K/mm3 (0.84-5.20); LYMPHOCYTES PERCENT AUTO 24 % (21-46); MONOCYTES ABSOLUTE AUTO 0.62 K/mm3 (0.16-1.47); MONOCYTES PERCENT AUTO 8 % (4-13); Mean Corpuscular HGB 28.9 pg (26.0-34.0); Mean Corpuscular HGB Conc 33.1 g/dL (31.5-36.5); Mean Corpuscular Volume 87 fL (80-100); Mean Platelet Volume 8.3 fL (9.1-12.4); NEUTROPHILS ABSOLUTE AUTO 4.62 K/mm3 (1.96-9.15); NEUTROPHILS PERCENT AUTO 63 % (41-73); Platelet Count 335 K/mm3 (150-400); RDW Coefficient Variation 12.1 % (11.7-14.2); RDW Standard Deviation 39.1 fL (35.1-46.3); Red Blood Cell Count 2.84 M/mm3 (4.30-5.90); White Blood Cell Count 7.34 K/mm3 (4.00-11.30)
--- NOTE | 2020-07-22 04:57 | NUR ---
I AGREE WITH RIVET MACHINE OPERATOR SANDRA DELUNA DOCUMENTATION. MAURILIO GARCIA RN
[2020-07-22 05:09] LABS: Alanine Aminotransfer (ALT/SGP 11 U/L (12-78); Albumin, Blood 2.1 g/dL (3.4-5.0); Albumin/Globulin Ratio 0.5 (0.8-1.8); Alk Phos 92 U/L (50-136); Anion Gap 5 mmol/L (6-16); Aspartate Aminotrans (AST/SGOT 12 U/L (12-37); Bilirubin, Total 0.7 mg/dL (0.1-1.0); Blood Urea Nitrogen 10 mg/dL (8-24); Bun/Creatinine Ratio 13.6 (12.0-20.0); CO2, Blood 28 mmol/L (21-32); Chloride, Blood 104 mmol/L (98-108); Creatinine, Blood 0.73 mg/dL (0.60-1.20); Globulin, Blood 4.3 g/dL (2.2-4.0); Glomerular Filtration Rate >60 (60-); Glucose, Blood 123 mg/dL (70-99); Potassium, Blood 3.2 mmol/L (3.5-5.5); Sodium, Blood 137 mmol/L (136-145); Total Protein, Blood 6.4 g/dL (6.4-8.2)
--- NOTE | 2020-07-22 05:43 | NUR ---
LABS RETURNED, POTASSIUM LEVEL 3.2 AFTER HAVING RECEIVED 20 mEq IV earlier. MD SOLAR CONSULTANT NOTIFIED. ORDERS FOR POTASSIUM 40 mEq IV X 1.
[2020-07-22 12:50] LABS: SARS-Cov-2 (COVID-19) PCR, MMC NEGATIVE (NEGATIVE)
--- NOTE | 2020-07-22 13:07 | NUR ---
PATIENT A/OX4. HE REQUESTS PENICILLIN BE REMOVED FROM HIS ALLERGY LIST AND STATES HE IS NOT ALLERGIC TO ANY MEDICATIONS THAT HE IS AWARE OF. ALLERGY LIST UPDATED. Patient confirms NPO status and agrees with scheduled surgery.
--- NOTE | 2020-07-22 15:00 | NUR ---
07/22/20 1500 PANFILOJOSE MARTIN PT RECEIVED SCHEDULED DOSE OF IV ANTIBIOTICS PRIOR TO PROCEDURE PER DR ORDERS.
--- NOTE | 2020-07-22 17:10 | NUR ---
1630-PT VOIDED 100ML CLEAR YELLOW URINE PLUS INCONTINENT OF URINE
--- NOTE | 2020-07-22 18:48 | NUR ---
PT AAOX4. PLEASANT AND COOPERATIVE WITH CARE. PT OFF FLOOR FOR BKA. PRODEDURE UNCOMPLICATED. EBL LESS THAN 40ML. LCTA. RR ARE EVEN AND UNLABORED ON RA. O2 SATURATIONS GREATER THAN 96%. DRESSING CDI. ADVANCE DIET TOLERATED THEN ADA. NO N/V OFF SHIFT CHANGE. IV R. FOREARM AND R HAND. FLUIDS RUNNING KVO. MEDICATED FOR PAIN X1.WITH GOOD RESULTS. PT HAS NO CONCERNS AT THIS TIME
[2020-07-22 19:14] LABS: Vancomycin, Trough 18.9 ug/mL (5.0-10.0)
--- NOTE | 2020-07-23 04:05 | NUR ---
PROPERTY CONTROLLER SUMMARY PT A/O X4. MEDICATED FOR L PHANTOM LEG PAIN X2 NOC SHIFT. PT DENIES SOB, CHEST PAIN, NAUSEA. USES CALL LIGHT APPROPRIATELY AND USES URINAL IN BED INDEPENDENTLY. CONTINUES TO BE ON BESREST. DRESSING TO LLE IS C.D.I. POST OP VITALS HAVE BEEN STABLE. CALL LIGHT WITHIN REACH. WILL CONTINUE TO MONITOR.
[2020-07-23 05:10] LABS: BASOPHILS PERCENT AUTO 1 % (0-2); EOSINOPHILS ABSOLUTE AUTO 0.22 K/mm3 (0.00-0.68); EOSINOPHILS PERCENT AUTO 2 % (0-6); Hematocrit 27.6 % (37.0-53.0); Hemoglobin 8.8 g/dL (13.5-17.5); IMMATURE GRAN ABSOLUTE AUTO 0.05 K/mm3 (0.00-0.10); IMMATURE GRAN PERCENT AUTO 1 % (0-1); LYMPHOCYTES PERCENT AUTO 20 % (21-46); MONOCYTES ABSOLUTE AUTO 0.64 K/mm3 (0.16-1.47); MONOCYTES PERCENT AUTO 7 % (4-13); Mean Corpuscular HGB 28.7 pg (26.0-34.0); Mean Corpuscular HGB Conc 31.9 g/dL (31.5-36.5); Mean Corpuscular Volume 90 fL (80-100); Mean Platelet Volume 8.4 fL (9.1-12.4); NEUTROPHILS ABSOLUTE AUTO 6.34 K/mm3 (1.96-9.15); NEUTROPHILS PERCENT AUTO 69 % (41-73); Platelet Count 377 K/mm3 (150-400); RDW Coefficient Variation 12.4 % (11.7-14.2); RDW Standard Deviation 39.5 fL (35.1-46.3); Red Blood Cell Count 3.07 M/mm3 (4.30-5.90); White Blood Cell Count 9.15 K/mm3 (4.00-11.30)
[2020-07-23 05:47] LABS: Anion Gap 6 mmol/L (6-16); Blood Urea Nitrogen 6 mg/dL (8-24); CO2, Blood 27 mmol/L (21-32); Calcium, Blood 8.5 mg/dL (8.5-10.1); Chloride, Blood 103 mmol/L (98-108); Creatinine, Blood 0.75 mg/dL (0.60-1.20); Glomerular Filtration Rate >60 (60-); Glucose, Blood 119 mg/dL (70-99); Potassium, Blood 3.4 mmol/L (3.5-5.5); Sodium, Blood 136 mmol/L (136-145)
--- NOTE | 2020-07-23 18:12 | NUR ---
PATIENT IS ALERT AND ORIENTED AND COOPERATIVE WITH CARE. WOUND CARE WAS COMPLETED BY DR. HERNÁNDEZ'S PHYSICIAN INFORMATION SERVICES CONSULTANT THIS MORNING. PATIENT WORKED WITH PT AND OT. HE HAS SAT UP ON THE SIDE OF THE BED. C/O PAIN ON SURGICAL SITE, MEDICATED PER EMAR. WILL CONTINUE TO MONITOR.
--- NOTE | 2020-07-24 04:10 | NUR ---
REGULATOR MECHANIC SUMMARY PT A/O X4, PLEASANT AND COOPERATIVE. MEDICATED ONCE WITH OXYCODONE FOR PHANTOM L LEG PAIN. PT STATES OXYCODNE HAS WORKED VERY WELL FOR HIM. DENIES SOB, NAUSEA. NO COMPLAINTS. DRESSING ON L STUMP IS C.D.I. NO ACUTE CHANGES. VSS. CALL LIGHT WITHIN REACH. WILL CONTINUE TO MONITOR.
[2020-07-24 05:15] LABS: BASOPHILS ABSOLUTE AUTO 0.11 K/mm3 (0.00-0.23); BASOPHILS PERCENT AUTO 1 % (0-2); EOSINOPHILS ABSOLUTE AUTO 0.25 K/mm3 (0.00-0.68); EOSINOPHILS PERCENT AUTO 3 % (0-6); Hematocrit 25.2 % (37.0-53.0); IMMATURE GRAN ABSOLUTE AUTO 0.03 K/mm3 (0.00-0.10); IMMATURE GRAN PERCENT AUTO 0 % (0-1); LYMPHOCYTES ABSOLUTE AUTO 2.44 K/mm3 (0.84-5.20); LYMPHOCYTES PERCENT AUTO 30 % (21-46); MONOCYTES ABSOLUTE AUTO 0.87 K/mm3 (0.16-1.47); MONOCYTES PERCENT AUTO 11 % (4-13); Mean Corpuscular HGB 28.4 pg (26.0-34.0); Mean Corpuscular HGB Conc 31.7 g/dL (31.5-36.5); Mean Corpuscular Volume 89 fL (80-100); Mean Platelet Volume 8.6 fL (9.1-12.4); NEUTROPHILS ABSOLUTE AUTO 4.45 K/mm3 (1.96-9.15); NEUTROPHILS PERCENT AUTO 55 % (41-73); Platelet Count 322 K/mm3 (150-400); RDW Coefficient Variation 12.5 % (11.7-14.2); RDW Standard Deviation 40.6 fL (35.1-46.3); Red Blood Cell Count 2.82 M/mm3 (4.30-5.90); White Blood Cell Count 8.15 K/mm3 (4.00-11.30)
[2020-07-24 05:45] LABS: Anion Gap 4 mmol/L (6-16); Blood Urea Nitrogen 14 mg/dL (8-24); CO2, Blood 29 mmol/L (21-32); Calcium, Blood 8.2 mg/dL (8.5-10.1); Chloride, Blood 102 mmol/L (98-108); Creatinine, Blood 1.08 mg/dL (0.60-1.20); Glomerular Filtration Rate >60 (60-); Glucose, Blood 126 mg/dL (70-99); Potassium, Blood 3.9 mmol/L (3.5-5.5); Sodium, Blood 135 mmol/L (136-145); Vancomycin, Random 20.5 ug/mL
--- NOTE | 2020-07-24 18:34 | NUR ---
SHIFT SUMMARY NO ACUTE CHANGES NOTED TO PT THIS SHIFT. PT A&OX4, ABLE TO MAKE NEEDS KNOWN, PLEASANT AND COOPERATIVE TO CARE. MEDICATED FOR PAIN PER EMAR. NO C/O CP, SOB, OR N&V. PT ON IV ABX, NO ASE NOTED. DRESSING TO L BKA STUMP C/D/I. PT AT BEDSIDE THIS AFTERNOON. CONDOM CATH IN PLACE AND DRAINING TO GRAVITY. PT CALM AND RESTED IN BED AT THIS TIME. BED AT LOWEST POSITION. CALL LIGHT WITHIN REACH.
[2020-07-25 04:55] LABS: BASOPHILS ABSOLUTE AUTO 0.08 K/mm3 (0.00-0.23); BASOPHILS PERCENT AUTO 1 % (0-2); EOSINOPHILS ABSOLUTE AUTO 0.34 K/mm3 (0.00-0.68); EOSINOPHILS PERCENT AUTO 4 % (0-6); Hematocrit 23.8 % (37.0-53.0); Hemoglobin 7.6 g/dL (13.5-17.5); IMMATURE GRAN ABSOLUTE AUTO 0.03 K/mm3 (0.00-0.10); IMMATURE GRAN PERCENT AUTO 0 % (0-1); LYMPHOCYTES ABSOLUTE AUTO 2.46 K/mm3 (0.84-5.20); LYMPHOCYTES PERCENT AUTO 31 % (21-46); MONOCYTES ABSOLUTE AUTO 0.72 K/mm3 (0.16-1.47); MONOCYTES PERCENT AUTO 9 % (4-13); Mean Corpuscular HGB 28.6 pg (26.0-34.0); Mean Corpuscular HGB Conc 31.9 g/dL (31.5-36.5); Mean Corpuscular Volume 90 fL (80-100); Mean Platelet Volume 8.5 fL (9.1-12.4); NEUTROPHILS PERCENT AUTO 54 % (41-73); Platelet Count 305 K/mm3 (150-400); RDW Coefficient Variation 12.8 % (11.7-14.2); RDW Standard Deviation 41.8 fL (35.1-46.3); Red Blood Cell Count 2.66 M/mm3 (4.30-5.90); White Blood Cell Count 7.93 K/mm3 (4.00-11.30)
[2020-07-25 05:11] LABS: Anion Gap 4 mmol/L (6-16); Blood Urea Nitrogen 21 mg/dL (8-24); Bun/Creatinine Ratio 20.6 (12.0-20.0); CO2, Blood 29 mmol/L (21-32); Chloride, Blood 102 mmol/L (98-108); Creatinine, Blood 1.02 mg/dL (0.60-1.20); Glomerular Filtration Rate >60 (60-); Glucose, Blood 180 mg/dL (70-99); Sodium, Blood 135 mmol/L (136-145)
--- NOTE | 2020-07-25 06:11 | NUR ---
SHIFT SUMMARY- PT. A&O, S/P L BKA POD#3. MEDICATED FOR PAIN TO L STUMP X2 THIS SHIFT WITH GOOD EFFECT. PT. HAD A FEW LOOSE STOOLS DURING THE NIGHT. NOTIFIED HOSPITALIST. MEDICATED WITH PROBIOTIC PER ORDER. PT. SLEPT T/O THE NIGHT, NO APPARENT DISTRESS NOTED. INCONT OF BOWEL AND BLADDER, CONDOM CATHETER IN PLACE AND ATTENDS ON. PT. VERY WEAK, 1-2 ASSIST FOR BED CHANGES. VSS. CALL LIGHT WITHIN REACH AND SIDE RAILS UPX2. WILL CONT TO MONITOR.
[2020-07-25 07:37] LABS: SARS-Cov-2 (COVID-19) PCR, MMC NEGATIVE (NEGATIVE)
--- NOTE | 2020-07-25 17:03 | NUR ---
SHIFT SUMMARY PATIENT MEDICATED X1 FOR PAIN THIS SHIFT. DENIES NAUSEA AND SHORTNESS OF BREATH. WORKED WITH PT TODAY, SITTING UP ON SIDE OF BED, BUT UNABLE TO TRANSFER. SEVERAL LOOSE STOOLS THIS SHIFT, DOCTOR AWARE. EATING AND DRINKING WELL. PLEASANT AND COOPERATIVE WITH CARE.
--- NOTE | 2020-07-26 05:39 | NUR ---
SHIFT SUMMARY- PT. HAD 2 EPISODES OF DIARRHEA THIS SHIFT. QUESTRAN POWDER GIVEN LAST NIGHT PER EMAR, TOLERATED WELL. ALSO C/O L STUMP PAIN, MEDICATED PER EMAR WITH GOOD EFFECT. PT. SLEPT T/O THE NIGHT, NO APPARENT DISTRESS NOTED. VSS. CALL LIGHT WITHIN REACH AND SIDE RAILS UPX2. WILL CONT TO MONITOR.
--- NOTE | 2020-07-26 16:12 | NUR ---
SHIFT SUMMARY PATIENT MEDICATED X2 FOR PAIN. PATIENT DENIES NAUSEA AND SHORTNESS OF BREATH. PATIENT HAD 2 EPISODES OF DIARRHEA. PATIENTS CONDOM CATH IS PATENT AND DRAINING TO GRAVITY. PATIENT ABLE TO REPOSITION HIMSELF IN BED. CHANGED TO BRAT DIET. DRESSING CHANGED ON L BKA. PLEASANT AND COOPERATIVE WITH CARE.
--- NOTE | 2020-07-27 05:31 | NUR ---
SHIFT SUMMARY- PT. HAD 1 EPISODE OF DIARRHEA THIS SHIFT AND MEDICATED FOR PAIN TO L STUMP 1X WITH GOOD EFFECT. DSG TO L STUMP C/D/I. PT. DENIED ANY OTHER NEEDS DURING THE NIGHT, VSS. CALL LIGHT WITHIN REACH AND SIDE RAILS UPX2. WILL CONT TO MONITOR.
[2020-07-27 11:03] LABS: SARS-Cov-2 (COVID-19) PCR, MMC NEGATIVE (NEGATIVE)
--- NOTE | 2020-07-27 12:51 | NUR ---
DISCHARGE PATIENT DISCHARGED TO [facility] FOR REHAB. PATIENT TRANSPORTED VIA WHEELCHAIR. IV REMOVED WITHOUT DIFFICULTY. BELONGINGS WITH PATIENT. DISCHARGE PACKET AND HARD COPY SENT WITH HYDROGRAPHY TEACHER. REPORT CALLED TO RECIEVING NURSE AT [facility].
[2020-07-27] MEDS ORDERED: VISBIOME 112.51 EACH PO (13:00)
[2020-07-27] MEDS ORDERED: BACTRIM DS TAB1 EAC6 PO (13:00)
[2020-07-27] MEDS ORDERED: OXYCODONE-ACET1 EAC2 PO (13:03)
[2020-07-27] MEDS ORDERED: CHOLESTYRAMI239.4 G1 PO (13:04)
[2020-07-27] MEDS ORDERED: JUVEN PACKET1 EAC3 PO (13:06)
== END 2020-07-27 12:46 | DRG 854 ==
LOC: ER 02:57 → MEDS 02:58 → ENPENDDIS 07-27 10:46 → MEDS 07-27 12:46
PROVIDERS: Emergency Medicine; Internal Medicine; Orthopaedic Surgery; Pharmacist; Student in an Organized Health Care Education/Training Program; ADMIT Internal Medicine
PROC: 0Y6J0Z1 Detachment at Left Lower Leg, High, Open Approach (ICD-10-PCS; principal; 2020-07-22 13:00)
DX: A41.9 Sepsis, unspecified organism (principal); M86.172 Other acute osteomyelitis, left ankle and foot; E11.52 Type 2 diabetes mellitus with diabetic peripheral angiopathy with gangrene; I96 Gangrene, not elsewhere classified; L97.429 Non-pressure chronic ulcer of left heel and midfoot with unspecified severity; L03.116 Cellulitis of left lower limb; K52.1 Toxic gastroenteritis and colitis; E11.621 Type 2 diabetes mellitus with foot ulcer; Z20.822 Contact with and (suspected) exposure to COVID-19; L02.632 Carbuncle of left foot; E11.65 Type 2 diabetes mellitus with hyperglycemia; E87.6 Hypokalemia; E11.40 Type 2 diabetes mellitus with diabetic neuropathy, unspecified; I10 Essential (primary) hypertension; T36.8X5A Adverse effect of other systemic antibiotics, initial encounter; T36.0X5A Adverse effect of penicillins, initial encounter; Z88.0 Allergy status to penicillin; Z79.899 Other long term (current) drug therapy
CPT/HCPCS: 36415; 73590; 73620; 80048; 80053; 80202; 82947; 83605; 85025; 85651; 86140; 87040; 88307; 88311; 93005; 93010; 96361; 96365; 96366; 96367; 96375; 97110; 97110-CQ; 97162; 97166; 97530; 97530-CQ; 97535; 99285-25; A9270; J0171; J2250; J2370; J2405; J2543; J2704; J3010; J3370; J3480; J7030; J7050; J7120; U0004

== ENCOUNTER 2020-10-23 13:30 | Emergency (ER) | payer MEDICARE ==
[~2020-10-23] VITALS: Ht 188 cm; Wt 76.7 kg
[~2020-10-23 13:30] MED LIST changes: +BACTRIM DS TAB1 EAC6 PO; +CHOLESTYRAMI239.4 G1 PO; +JUVEN PACKET1 EAC3 PO; +OXYCODONE-ACET1 EAC2 PO; +VISBIOME 112.51 EACH PO
[2020-10-23 14:47] LABS: BASOPHILS ABSOLUTE AUTO 0.12 K/mm3 (0.00-0.23); BASOPHILS PERCENT AUTO 2 % (0-2); EOSINOPHILS ABSOLUTE AUTO 0.34 K/mm3 (0.00-0.68); EOSINOPHILS PERCENT AUTO 4 % (0-6); Hematocrit 40.6 % (37.0-53.0); Hemoglobin 13.1 g/dL (13.5-17.5); IMMATURE GRAN ABSOLUTE AUTO 0.03 K/mm3 (0.00-0.10); IMMATURE GRAN PERCENT AUTO 0 % (0-1); LYMPHOCYTES ABSOLUTE AUTO 2.77 K/mm3 (0.84-5.20); LYMPHOCYTES PERCENT AUTO 36 % (21-46); MONOCYTES ABSOLUTE AUTO 0.44 K/mm3 (0.16-1.47); MONOCYTES PERCENT AUTO 6 % (4-13); Mean Corpuscular HGB 28.4 pg (26.0-34.0); Mean Corpuscular HGB Conc 32.3 g/dL (31.5-36.5); Mean Corpuscular Volume 88 fL (80-100); Mean Platelet Volume 9.5 fL (9.1-12.4); NEUTROPHILS ABSOLUTE AUTO 4.08 K/mm3 (1.96-9.15); NEUTROPHILS PERCENT AUTO 52 % (41-73); Platelet Count 227 K/mm3 (150-400); RDW Coefficient Variation 12.8 % (11.7-14.2); RDW Standard Deviation 41.1 fL (35.1-46.3); Red Blood Cell Count 4.61 M/mm3 (4.30-5.90); White Blood Cell Count 7.78 K/mm3 (4.00-11.30)
[2020-10-23 15:07] LABS: Alanine Aminotransfer (ALT/SGP 14 U/L (12-78); Albumin, Blood 2.9 g/dL (3.4-5.0); Albumin/Globulin Ratio 0.7 (0.8-1.8); Alk Phos 100 U/L (50-136); Anion Gap 3 mmol/L (6-16); Aspartate Aminotrans (AST/SGOT 9 U/L (12-37); Bilirubin, Total 0.6 mg/dL (0.1-1.0); Blood Urea Nitrogen 15 mg/dL (8-24); Bun/Creatinine Ratio 22.7 (12.0-20.0); CO2, Blood 29 mmol/L (21-32); Calcium, Blood 9.1 mg/dL (8.5-10.1); Chloride, Blood 109 mmol/L (98-108); Creatinine, Blood 0.66 mg/dL (0.60-1.20); Glomerular Filtration Rate >60 (60-); Glucose, Blood 225 mg/dL (70-99); Potassium, Blood 3.1 mmol/L (3.5-5.5); Sodium, Blood 141 mmol/L (136-145); Total Protein, Blood 6.9 g/dL (6.4-8.2)
== END 2020-10-23 22:42 | disposition home or self-care (01) ==
LOC: ER 13:30
PROVIDERS: Physician Assistant
DX: L97.429 Non-pressure chronic ulcer of left heel and midfoot with unspecified severity (principal); I10 Essential (primary) hypertension; E11.40 Type 2 diabetes mellitus with diabetic neuropathy, unspecified
CPT/HCPCS: 73630; 80053; 83605; 85025; 85651; 87040; 93005; 93010; 99284-25; J7030

== ENCOUNTER 2021-03-17 15:12 | Inpatient (IN) | payer MEDICARE ==
[~2021-03-17] VITALS: Ht 182.9 cm; Wt 62.9 kg
[2021-03-17 17:45] LABS: BASOPHILS ABSOLUTE AUTO 0.07 K/mm3 (0.00-0.23); BASOPHILS PERCENT AUTO 0 % (0-2); EOSINOPHILS ABSOLUTE AUTO 0.04 K/mm3 (0.00-0.68); EOSINOPHILS PERCENT AUTO 0 % (0-6); Hematocrit 45.6 % (37.0-53.0); Hemoglobin 14.7 g/dL (13.5-17.5); IMMATURE GRAN PERCENT AUTO 1 % (0-1); LYMPHOCYTES ABSOLUTE AUTO 3.06 K/mm3 (0.84-5.20); LYMPHOCYTES PERCENT AUTO 19 % (21-46); MONOCYTES ABSOLUTE AUTO 0.75 K/mm3 (0.16-1.47); MONOCYTES PERCENT AUTO 5 % (4-13); Mean Corpuscular HGB 29.2 pg (26.0-34.0); Mean Corpuscular HGB Conc 32.2 g/dL (31.5-36.5); Mean Corpuscular Volume 91 fL (80-100); NEUTROPHILS ABSOLUTE AUTO 11.86 K/mm3 (1.96-9.15); NEUTROPHILS PERCENT AUTO 75 % (41-73); Platelet Count 373 K/mm3 (150-400); RDW Standard Deviation 46.4 fL (35.1-46.3); Red Blood Cell Count 5.04 M/mm3 (4.30-5.90); White Blood Cell Count 15.88 K/mm3 (4.00-11.30)
[2021-03-17 18:24] LABS: Magnesium, Blood 2.1 mg/dL (1.6-2.4)
[2021-03-17 18:25] LABS: Alanine Aminotransfer (ALT/SGP 9 U/L (12-78); Albumin, Blood 3.5 g/dL (3.4-5.0); Albumin/Globulin Ratio 0.8 (0.8-1.8); Alk Phos 104 U/L (50-136); Anion Gap 18 mmol/L (6-16); Aspartate Aminotrans (AST/SGOT 16 U/L (12-37); Bilirubin, Total 0.9 mg/dL (0.1-1.0); Blood Urea Nitrogen 15 mg/dL (8-24); Bun/Creatinine Ratio 27.1 (12.0-20.0); CO2, Blood 13 mmol/L (21-32); Chloride, Blood 106 mmol/L (98-108); Creatinine, Blood 0.55 mg/dL (0.60-1.20); Globulin, Blood 4.4 g/dL (2.2-4.0); Glomerular Filtration Rate >60 (60-); Glucose, Blood 117 mg/dL (70-99); Potassium, Blood 3.5 mmol/L (3.5-5.5); Sodium, Blood 137 mmol/L (136-145); Total Protein, Blood 7.9 g/dL (6.4-8.2)
[2021-03-17 18:29] LABS: Influenza A, PCR NEGATIVE (NEGATIVE); Influenza B, PCR NEGATIVE (NEGATIVE); Resp Syncytial Virus, PCR NEGATIVE (NEGATIVE); SARS-Cov-2 (COVID-19) PCR, MMC NEGATIVE (NEGATIVE)
[2021-03-17 19:03] LABS: Source, Urine Clean Catch
[2021-03-17 19:07] LABS: Appearance, Urine Clear (Clear); Bilirubin, Urine Neg (Neg); Blood, Urine 3+ (Neg); Color, Urine Yellow (P-Yellow); Glucose Qualitative, Urine Neg (Neg); Ketones, Urine 4+ (Neg); Leukocyte Esterase, Urine 3+ (Neg); Nitrite, Urine Neg (Neg); Protein, Urine 3+ (Neg); Specific Gravity, Urine 1.025 (1.003-1.022); Urobilinogen, Urine NORM (Normal)
[2021-03-17 19:15] LABS: Squamous Epithelial Cells Rare /hpf (Few); White Blood Cells, Urine 50-100 /hpf (0-5)
[2021-03-17 19:16] LABS: Bacteria Mod /hpf
[2021-03-17 22:34] LABS: Base Excess Venous -18.5 mmol/L; Bicarbonate Venous 11.7 mmol/L (24.0-30.0); PCO2 Venous 31.5 mmHg (38-42); PO2 Venous 71.6 mmHg (38-42); pH Blood Venous 7.13 (7.34-7.37)
[2021-03-17] MEDS ORDERED: ACET325 PO (22:45)
[2021-03-17] MEDS ORDERED: ASPI81CH PO (22:46)
[2021-03-17] MEDS ORDERED: ATOR10 PO (22:47)
[2021-03-17] MEDS ORDERED: GABA100 PO (22:48)
[2021-03-17] MEDS ORDERED: BASAGLAR K100 UNIT/3 SC (22:50)
[2021-03-17] MEDS ORDERED: Vitamin D PO (22:51)
--- NOTE | 2021-03-18 01:19 | NUR ---
ASSUMED CARE OF PT AT 2039. A/OX4. PATIENT BEDFAST W BKA OF L LEG AND ANKLE AMPUTATION OF R LEG. VSS. MAINTAINS OVER 95% ON RA WITH CLEAR LS. SINUS TACH WITH PAC AND PVC'S AVG 100. FAINT PULSES T/O. SKIN IS VERY DRY AND PRONE TO TEARING. SKIN CAKED IN OLD STOOL AND DRY/FLAKED SKIN. EXTENSIVE WOUNDS TO PERIANAL AREA, COCCYX, R SIERRA, AND OPEN (OLD) PRESSURE WOUND ON R ANKLE. TYPE 2 DIABETIC THAT DOESN'T CHECK CBG OR TAKE MEDICATIONS FOR IT. VERY MALNOURISHED APPEARING. PATIENT STATED THAT BEFORE TODAY HE HADN'T CONSUMED ANYTHING FOR 4 DAYS. WILL UPDATE CHANGES OCCUR.
[2021-03-18 01:44] LABS: Alanine Aminotransfer (ALT/SGP 16 U/L (12-78); Albumin, Blood 2.8 g/dL (3.4-5.0); Albumin/Globulin Ratio 0.7 (0.8-1.8); Alk Phos 81 U/L (50-136); Anion Gap 17 mmol/L (6-16); Aspartate Aminotrans (AST/SGOT 9 U/L (12-37); Bilirubin, Total 0.6 mg/dL (0.1-1.0); Blood Urea Nitrogen 13 mg/dL (8-24); Bun/Creatinine Ratio 26.1 (12.0-20.0); CO2, Blood 14 mmol/L (21-32); Calcium, Blood 9.1 mg/dL (8.5-10.1); Chloride, Blood 109 mmol/L (98-108); Globulin, Blood 4.3 g/dL (2.2-4.0); Glomerular Filtration Rate >60 (60-); Glucose, Blood 151 mg/dL (70-99); Potassium, Blood 3.4 mmol/L (3.5-5.5); Sodium, Blood 140 mmol/L (136-145); Total Protein, Blood 7.1 g/dL (6.4-8.2)
[2021-03-18 07:16] LABS: Alanine Aminotransfer (ALT/SGP 10 U/L (12-78); Albumin, Blood 2.4 g/dL (3.4-5.0); Albumin/Globulin Ratio 0.7 (0.8-1.8); Alk Phos 75 U/L (50-136); Anion Gap 15 mmol/L (6-16); Aspartate Aminotrans (AST/SGOT 8 U/L (12-37); Bilirubin, Total 0.5 mg/dL (0.1-1.0); Blood Urea Nitrogen 14 mg/dL (8-24); Bun/Creatinine Ratio 29.5 (12.0-20.0); CO2, Blood 16 mmol/L (21-32); Calcium, Blood 8.7 mg/dL (8.5-10.1); Chloride, Blood 107 mmol/L (98-108); Creatinine, Blood 0.47 mg/dL (0.60-1.20); Globulin, Blood 3.4 g/dL (2.2-4.0); Glomerular Filtration Rate >60 (60-); Glucose, Blood 346 mg/dL (70-99); Potassium, Blood 2.9 mmol/L (3.5-5.5); Sodium, Blood 138 mmol/L (136-145); Total Protein, Blood 5.8 g/dL (6.4-8.2)
--- NOTE | 2021-03-18 11:24 | NUR ---
PT SMELLS STRONGLY OF KETONES, PT'S POC 475, DR TORRES CALLED NEW ORDERS OBTAINED FOR HIGH S/S INSULIN COVERAGE
[2021-03-18 12:34] LABS: Alanine Aminotransfer (ALT/SGP 6 U/L (12-78); Albumin, Blood 2.3 g/dL (3.4-5.0); Albumin/Globulin Ratio 0.7 (0.8-1.8); Alk Phos 73 U/L (50-136); Anion Gap 8 mmol/L (6-16); Aspartate Aminotrans (AST/SGOT 10 U/L (12-37); Bilirubin, Total 0.3 mg/dL (0.1-1.0); Blood Urea Nitrogen 14 mg/dL (8-24); Bun/Creatinine Ratio 28.9 (12.0-20.0); CO2, Blood 20 mmol/L (21-32); Calcium, Blood 8.4 mg/dL (8.5-10.1); Chloride, Blood 107 mmol/L (98-108); Creatinine, Blood 0.49 mg/dL (0.60-1.20); Globulin, Blood 3.2 g/dL (2.2-4.0); Glomerular Filtration Rate >60 (60-); Glucose, Blood 475 mg/dL (70-99); Potassium, Blood 3.5 mmol/L (3.5-5.5); Sodium, Blood 135 mmol/L (136-145); Total Protein, Blood 5.5 g/dL (6.4-8.2)
[2021-03-18 12:44] LABS: Magnesium, Blood 1.6 mg/dL (1.6-2.4)
[2021-03-18 12:50] LABS: Phosphorus, Blood 0.6 mg/dL (2.5-4.9)
[2021-03-18 16:43] LABS: BASOPHILS ABSOLUTE AUTO 0.06 K/mm3 (0.00-0.23); BASOPHILS PERCENT AUTO 1 % (0-2); EOSINOPHILS ABSOLUTE AUTO 0.03 K/mm3 (0.00-0.68); EOSINOPHILS PERCENT AUTO 0 % (0-6); Hematocrit 33.5 % (37.0-53.0); Hemoglobin 11.3 g/dL (13.5-17.5); IMMATURE GRAN ABSOLUTE AUTO 0.03 K/mm3 (0.00-0.10); IMMATURE GRAN PERCENT AUTO 0 % (0-1); LYMPHOCYTES ABSOLUTE AUTO 1.77 K/mm3 (0.84-5.20); LYMPHOCYTES PERCENT AUTO 19 % (21-46); MONOCYTES ABSOLUTE AUTO 0.67 K/mm3 (0.16-1.47); MONOCYTES PERCENT AUTO 7 % (4-13); Mean Corpuscular HGB 29.3 pg (26.0-34.0); Mean Corpuscular HGB Conc 33.7 g/dL (31.5-36.5); Mean Corpuscular Volume 87 fL (80-100); Mean Platelet Volume 9.3 fL (9.1-12.4); NEUTROPHILS ABSOLUTE AUTO 7.02 K/mm3 (1.96-9.15); NEUTROPHILS PERCENT AUTO 73 % (41-73); Platelet Count 241 K/mm3 (150-400); RDW Coefficient Variation 14.1 % (11.7-14.2); RDW Standard Deviation 44.5 fL (35.1-46.3); Red Blood Cell Count 3.86 M/mm3 (4.30-5.90); White Blood Cell Count 9.58 K/mm3 (4.00-11.30)
[2021-03-18 17:01] LABS: Albumin, Blood 2.1 g/dL (3.4-5.0); Anion Gap 9 mmol/L (6-16); Blood Urea Nitrogen 15 mg/dL (8-24); Bun/Creatinine Ratio 30.2 (12.0-20.0); CO2, Blood 19 mmol/L (21-32); Calcium, Blood 8.2 mg/dL (8.5-10.1); Chloride, Blood 105 mmol/L (98-108); Glomerular Filtration Rate >60 (60-); Glucose, Blood 449 mg/dL (70-99); Phosphorus, Blood 1.4 mg/dL (2.5-4.9); Potassium, Blood 3.1 mmol/L (3.5-5.5); Sodium, Blood 133 mmol/L (136-145)
--- NOTE | 2021-03-18 18:58 | NUR ---
PT A/O X3, HE IS A POOR HISTORIAN WAS UNABLE TO RECALL HIS BREAKFAST BUT WAS ABLE TO ANSWER MOST QUESITONS APPROPRITATELY. VSS T/O THE DAY. DENIES CP AND SOB. PT VERY CONCERNED ABOUT HIS DOG AT HOME. PT WITH POSSIBLE NEED FOR PLACEMENT IN SNF FOR HIMSELF AND . PT WITH SODIUM PHOSPHATE INFUSING NOW FOR CRITICAL LOW PHOSPHATE. PT ABLE TO USE OWN URINAL IN BED. SHORT ACTING INSULIN WAS ADDED TODAY FOR BLOOD SUGARS >400.
[2021-03-19 00:30] LABS: Albumin, Blood 2.2 g/dL (3.4-5.0); Anion Gap 8 mmol/L (6-16); Blood Urea Nitrogen 18 mg/dL (8-24); CO2, Blood 23 mmol/L (21-32); Chloride, Blood 108 mmol/L (98-108); Glomerular Filtration Rate >60 (60-); Glucose, Blood 284 mg/dL (70-99); Magnesium, Blood 1.3 mg/dL (1.6-2.4); Phosphorus, Blood 1.7 mg/dL (2.5-4.9); Potassium, Blood 3.2 mmol/L (3.5-5.5); Sodium, Blood 139 mmol/L (136-145)
--- NOTE | 2021-03-19 02:15 | NUR ---
ASSUMED CARE OF PATIENT AT 1900. A/OX4 WITH PERIODS OF CONFUSION. NOT CURRENTLY REPORTING SHOULDER PAIN. MAINTAINS OVER 95% ON RA WITH CLEAR LS T/O. ST ON MONITOR 100-110'S, DENIES CP/SOB. PT REPORTS NEW ONSET DIARRHEA. POSTERIOR SURFACE KEPT CLEAN. K WAS LOW AT 3.[address] GARIBAY. PATIENT REPORTS STILL BEING UNABLE TO SLEEP. WILL UPDATE CHANGES OCCUR.
[2021-03-19 03:51] LABS: BASOPHILS ABSOLUTE AUTO 0.07 K/mm3 (0.00-0.23); BASOPHILS PERCENT AUTO 1 % (0-2); EOSINOPHILS ABSOLUTE AUTO 0.11 K/mm3 (0.00-0.68); EOSINOPHILS PERCENT AUTO 1 % (0-6); Hematocrit 32.3 % (37.0-53.0); Hemoglobin 10.9 g/dL (13.5-17.5); IMMATURE GRAN ABSOLUTE AUTO 0.04 K/mm3 (0.00-0.10); IMMATURE GRAN PERCENT AUTO 0 % (0-1); LYMPHOCYTES ABSOLUTE AUTO 2.58 K/mm3 (0.84-5.20); LYMPHOCYTES PERCENT AUTO 26 % (21-46); MONOCYTES ABSOLUTE AUTO 0.71 K/mm3 (0.16-1.47); MONOCYTES PERCENT AUTO 7 % (4-13); Mean Corpuscular HGB 29.5 pg (26.0-34.0); Mean Corpuscular HGB Conc 33.7 g/dL (31.5-36.5); Mean Corpuscular Volume 87 fL (80-100); Mean Platelet Volume 9.4 fL (9.1-12.4); NEUTROPHILS ABSOLUTE AUTO 6.28 K/mm3 (1.96-9.15); NEUTROPHILS PERCENT AUTO 64 % (41-73); Platelet Count 231 K/mm3 (150-400); RDW Coefficient Variation 14.2 % (11.7-14.2); RDW Standard Deviation 44.6 fL (35.1-46.3); White Blood Cell Count 9.79 K/mm3 (4.00-11.30)
[2021-03-19 04:53] LABS: Albumin, Blood 2.2 g/dL (3.4-5.0); Anion Gap 8 mmol/L (6-16); Blood Urea Nitrogen 22 mg/dL (8-24); Bun/Creatinine Ratio 47.3 (12.0-20.0); CO2, Blood 23 mmol/L (21-32); Calcium, Blood 8.1 mg/dL (8.5-10.1); Chloride, Blood 106 mmol/L (98-108); Creatinine, Blood 0.47 mg/dL (0.60-1.20); Glomerular Filtration Rate >60 (60-); Glucose, Blood 257 mg/dL (70-99); Magnesium, Blood 1.3 mg/dL (1.6-2.4); Phosphorus, Blood 1.3 mg/dL (2.5-4.9); Sodium, Blood 137 mmol/L (136-145)
[2021-03-19 10:43] LABS: Albumin, Blood 2.2 g/dL (3.4-5.0); Anion Gap 8 mmol/L (6-16); Blood Urea Nitrogen 24 mg/dL (8-24); Bun/Creatinine Ratio 57.4 (12.0-20.0); CO2, Blood 23 mmol/L (21-32); Calcium, Blood 8.1 mg/dL (8.5-10.1); Chloride, Blood 108 mmol/L (98-108); Creatinine, Blood 0.42 mg/dL (0.60-1.20); Glomerular Filtration Rate >60 (60-); Glucose, Blood 221 mg/dL (70-99); Phosphorus, Blood 2.5 mg/dL (2.5-4.9); Potassium, Blood 3.8 mmol/L (3.5-5.5); Sodium, Blood 139 mmol/L (136-145)
--- NOTE | 2021-03-19 15:05 | NUR ---
PT ARRIVED TO THE MEDICAL FLOOR FROM THE PCU A/OX3, PLEASANT AND COOPERATIVE. APPEARS TO BE BREATHING EASILY ON RA AT THIS TIME
--- NOTE | 2021-03-19 19:41 | NUR ---
PT IS A/X3, FORGETFULL AT TIMES. PLEASANT AND COOPERATIVE. THE PT IS BEDBOUND AT THIS TIME DUE TO LEFT LEG BKA AND RIGHT FOOT AMPUTATIONS. PT APPEARS TO BE BREATHING EASILY ON RA AT THIS TIME. PT WAS MEDICATED FOR COCCYX LEG AND ARM PAIN. CALL LIGHT IN REACH, NO OTHER CHANGES NOTICED THIS SHIFT
[2021-03-20 05:40] LABS: BASOPHILS ABSOLUTE AUTO 0.06 K/mm3 (0.00-0.23); BASOPHILS PERCENT AUTO 1 % (0-2); EOSINOPHILS ABSOLUTE AUTO 0.23 K/mm3 (0.00-0.68); EOSINOPHILS PERCENT AUTO 2 % (0-6); Hematocrit 32.6 % (37.0-53.0); Hemoglobin 11.1 g/dL (13.5-17.5); IMMATURE GRAN ABSOLUTE AUTO 0.03 K/mm3 (0.00-0.10); IMMATURE GRAN PERCENT AUTO 0 % (0-1); LYMPHOCYTES ABSOLUTE AUTO 2.91 K/mm3 (0.84-5.20); LYMPHOCYTES PERCENT AUTO 30 % (21-46); MONOCYTES ABSOLUTE AUTO 0.71 K/mm3 (0.16-1.47); MONOCYTES PERCENT AUTO 7 % (4-13); Mean Corpuscular HGB 29.6 pg (26.0-34.0); Mean Corpuscular Volume 87 fL (80-100); Mean Platelet Volume 9.5 fL (9.1-12.4); NEUTROPHILS ABSOLUTE AUTO 5.87 K/mm3 (1.96-9.15); NEUTROPHILS PERCENT AUTO 60 % (41-73); Platelet Count 249 K/mm3 (150-400); RDW Coefficient Variation 14.4 % (11.7-14.2); RDW Standard Deviation 45.2 fL (35.1-46.3); Red Blood Cell Count 3.75 M/mm3 (4.30-5.90); White Blood Cell Count 9.81 K/mm3 (4.00-11.30)
--- NOTE | 2021-03-20 06:44 | NUR ---
SHIFT SUMMARY PT IS A 80 Y/O MALE, ADMITTED FOR SEPSIS. HE IS A&O X 3, FORGETFUL AT TIMES. BEDREST, WITH A L BKA AND R FOOT ULCER. VITAL SIGNS STABLE. PT WAS MEDICATED FOR CHRONIC PAIN TWICE WITH PRN OXYCODONE. NO C/O NAUSEA OR SOB. PT RECEIVING LR @ 100 ML/HR. NO OTHER ACUTE CHANGES IN PT CONDITION NOTED DURING THE NIGHT. REPORT GIVEN TO ONCOMING RN.
[2021-03-20 06:57] LABS: Albumin, Blood 2.1 g/dL (3.4-5.0); Anion Gap 7 mmol/L (6-16); Blood Urea Nitrogen 25 mg/dL (8-24); CO2, Blood 25 mmol/L (21-32); Calcium, Blood 8.2 mg/dL (8.5-10.1); Chloride, Blood 109 mmol/L (98-108); Creatinine, Blood 0.48 mg/dL (0.60-1.20); Glomerular Filtration Rate >60 (60-); Glucose, Blood 169 mg/dL (70-99); Magnesium, Blood 1.8 mg/dL (1.6-2.4); Phosphorus, Blood 2.5 mg/dL (2.5-4.9); Potassium, Blood 4.6 mmol/L (3.5-5.5); Sodium, Blood 141 mmol/L (136-145)
--- NOTE | 2021-03-20 18:36 | NUR ---
SHIFT SUMMARY PATIENT IS ALERT AND ORIENTED X3, PLEASANT AND COOPERATIVE WITH CARE. PATIENT RECEIVED ABX THIS SHIFT. HAS LR RUNNING AT 100 MLS/HR. THE PATIENT HAD A BED BATH THIS SHIFT. MEPILIX APPIED TO COCCYX THIS SHIFT. PATIENT IS ABLE TO MAKE NEEDS KNOWN. CALLS APPROPRIATELY. PATIENT RECEIVED PAIN MEDS ONCE THIS SHIFT PER THE EMAR. PATIENT HAD REGULAR INSULIN FOR COVERAGE TWICE THIS SHIFT. VSS. NO ACUTE CHANGES. WILL CONTINUE TO CARE FOR THE PATIENT UNTIL SHIFT REPORT IS GIVEN TO ONCOMING NURSE.
--- NOTE | 2021-03-21 04:02 | NUR ---
SHIFT SUMMARY NO ACUTE CHANGES TO PT CONDITION DURING THIS SHIFT. PT A&O X 3. MEDICATED FOR CHRONIC R KNEE AND ARM PAIN PER EMAR. L BKA AND R FOOT ULCER. LR @ 100/HR. CALL LIGHT WITHIN REACH AND WILL CONTINUE TO MONITOR.
[2021-03-21 06:01] LABS: BASOPHILS ABSOLUTE AUTO 0.06 K/mm3 (0.00-0.23); BASOPHILS PERCENT AUTO 1 % (0-2); EOSINOPHILS ABSOLUTE AUTO 0.42 K/mm3 (0.00-0.68); EOSINOPHILS PERCENT AUTO 5 % (0-6); Hematocrit 34.4 % (37.0-53.0); Hemoglobin 11.3 g/dL (13.5-17.5); IMMATURE GRAN ABSOLUTE AUTO 0.03 K/mm3 (0.00-0.10); IMMATURE GRAN PERCENT AUTO 0 % (0-1); LYMPHOCYTES ABSOLUTE AUTO 3.26 K/mm3 (0.84-5.20); LYMPHOCYTES PERCENT AUTO 37 % (21-46); MONOCYTES ABSOLUTE AUTO 0.52 K/mm3 (0.16-1.47); MONOCYTES PERCENT AUTO 6 % (4-13); Mean Corpuscular HGB 29.4 pg (26.0-34.0); Mean Corpuscular HGB Conc 32.8 g/dL (31.5-36.5); Mean Corpuscular Volume 89 fL (80-100); Mean Platelet Volume 9.2 fL (9.1-12.4); NEUTROPHILS ABSOLUTE AUTO 4.47 K/mm3 (1.96-9.15); NEUTROPHILS PERCENT AUTO 51 % (41-73); Platelet Count 242 K/mm3 (150-400); RDW Coefficient Variation 14.5 % (11.7-14.2); RDW Standard Deviation 46.8 fL (35.1-46.3); Red Blood Cell Count 3.85 M/mm3 (4.30-5.90); White Blood Cell Count 8.76 K/mm3 (4.00-11.30)
[2021-03-21 06:33] LABS: Albumin, Blood 1.8 g/dL (3.4-5.0); Anion Gap 6 mmol/L (6-16); Blood Urea Nitrogen 26 mg/dL (8-24); Bun/Creatinine Ratio 52.2 (12.0-20.0); CO2, Blood 27 mmol/L (21-32); Calcium, Blood 8.2 mg/dL (8.5-10.1); Chloride, Blood 108 mmol/L (98-108); Glomerular Filtration Rate >60 (60-); Glucose, Blood 168 mg/dL (70-99); Phosphorus, Blood 2.8 mg/dL (2.5-4.9); Potassium, Blood 4.4 mmol/L (3.5-5.5); Sodium, Blood 141 mmol/L (136-145)
--- NOTE | 2021-03-21 18:41 | NUR ---
SHIFT SUMMARY PATIENT IS ALERT AND ORIENTED X3, PLEASANT AND COOPERATIVE WITH CARE. LR WAS DICONTINUED THIS SHIFT. PATIENT MEDICATED FOR PAIN X2. INSULIN GIVEN FOR COVERAGE X2. MEPILIX DRESSING CHANGED ON SACRUM. LOOSE BM'S THIS SHIFT. CDI. NO ACUTE CHANGES THIS SHIFT. PATIENT MAY POSSIBLY DC TO SNF TOMORROW. VSS. CALL LIGHT WITHIN REACH. BED IN LOWEST POSITION.
--- NOTE | 2021-03-22 03:32 | NUR ---
MANAGER DATABASE SUMMARY HAS BEEN RESTING QUIETLY AT INTERVALS. REQUESTED ANALGESIC ABOUT EVERY 6 HRS FOR BACK PAIN - SEE MAR FOR DETAILS. REMAINS ON CONTACT PRECAUTIONS FOR MRSA, NO NOTED DRAINAGE OF WOUNDS. DRESSINGS REMAIN INTACT. TOLERATING MEDS AND ANTIBIOTICS WELL. CALL LIGHT IN REACH. NO C/O AT THIS TIME.
[2021-03-22 05:50] LABS: Anion Gap 5 mmol/L (6-16); Blood Urea Nitrogen 29 mg/dL (8-24); Bun/Creatinine Ratio 54.6 (12.0-20.0); CO2, Blood 29 mmol/L (21-32); Calcium, Blood 8.4 mg/dL (8.5-10.1); Chloride, Blood 108 mmol/L (98-108); Creatinine, Blood 0.53 mg/dL (0.60-1.20); Glomerular Filtration Rate >60 (60-); Glucose, Blood 157 mg/dL (70-99); Magnesium, Blood 1.6 mg/dL (1.6-2.4); Phosphorus, Blood 3.7 mg/dL (2.5-4.9); Potassium, Blood 4.5 mmol/L (3.5-5.5); Sodium, Blood 142 mmol/L (136-145)
--- NOTE | 2021-03-22 18:23 | NUR ---
SHIFT SUMMARY PT IS A&O, PLEASANT AND CO-OP WITH CARE. PT WAITING TO D/C TO SNF. LBKA WITH TOES ON R FOOT AMPUTATED. PT IS A DIABETIC WITH NEUROPATHY. STAGE 2 WOUND ON COCCYX WITH MEPILEX. PT INCONTINENT OF BOWELS WITH C/O LOOSE STOOLS. MEDICATED PER EMAR FOR C/O R KNEE PAIN AND LATER BACK PAIN. ICE BAG PLACED TO R KNEE A COUPLE OF TIMES. CALL LT IN REACH, ABLE TO MAKE NEEDS KNOWN.
--- NOTE | 2021-03-23 05:36 | NUR ---
CREDIT OR LOANS OFFICER SUMMARY A/O X 3-4. COOPERATIVE WITH TREATMENT/CARE. INCONT OF BOWELS AND URINE. LOOSE STOOLS CONTINUE. REPOSITIONING DONE INTERMITTENTLY TO KEEP OFF BUTTOCKS/COCCYX TO PREVENT FURTHER BREAK DOWN. VSS. ANALGESICS ADMINISTERED ABOUT EVERY 6 HRS FOR PAIN OF RIGHT KNEE. MEPILEX DRESSING OF COCCYX CHANGED DUE TO INCONT, OTHER DRESSINGS REMAIN INTACT. CALL LIGHT IN REACH. RESTING QUIETLY AT THIS TIME. ISOLATION PRECAUTIONS MAINTAINED.
--- NOTE | 2021-03-23 15:32 | NUR ---
SHIFT SUMMARY PT IS A&O, PLEASANT AND CO-OP WITH CARE. MOSTLY CONTINENT OF URINE, BUT INCONTINENT OF BOWEL. DRSG TO COCCYX CHANGED AGAIN THIS AFTERNOON D/T BM. PT ABLE TO WORK WITH PT/OT AND LEARNING TO ASSIST WITH TURNING. PG TO RAMON NO LONGER PATENT. DR GUERRERO AND DR TORRES HERE TO SEE PT THIS AM. UPDATED DR TORRES ON STATUS OF IV; IV NO LONGER NEEDED. PT COMPLETED DOSES OF IV ABX. PO ABX STILL GIVEN TODAY. PT CONTINUES TO WAIT FOR A BED AT [facility] TO OPEN UP. REQUESTED IMODIUM FOR LOOSE STOOL; NONE GIVEN YET STOOL WAS SOFT FORMED AND NOT LIQUID. MEDICATED PER EMAR FOR C/O PAIN TO R KNEE AND LATER TO R HIP. PT REPOSITIONED WHICH SEEMED TO HELP. ICE BAG PLACED TO R KNEE SWELLING AND PAIN. RESTING QUIETLY AT THIS TIME. CALL LT IN REACH.
--- NOTE | 2021-03-24 03:46 | NUR ---
TELERADIOLOGIST SUMMARY HAS BEEN AWAKE AT INTERVALS THROUGH SHIFT. REQUESTED AND RECEIVED ANALGESIC EARLIER RE RIGHT KNEE PAIN. CONTINUE TO REPOSITION PT OFF COCCYX AREA TO PREVENT FURTHER BREAK DOWN. INCONT OF FECES AND CHANGED. ISOLATION PRECAUTIONS FOR MRSE CONTINUES AND MAINTAINED. CALL LIGHT IN REACH
--- NOTE | 2021-03-24 17:46 | NUR ---
PT AAOX 4 ABLE TO MAKE NEEDS KNOWN. PT COMPLIANT WITH MEDICATION REGIMEN. REMAINS ON RA, NO DISTRESS NOTED. CONTINUES ON PO ABT, NO ADV. REACTION NOTED. PT C/O PAIN TO TO RLE MEDICATED, EFFECTIVE OUTCOME VOICED. US DONE TO LEFT NECK AREA. BED IN LOWEST POSITION. CALL LIGHT IN REACH.
--- NOTE | 2021-03-25 04:53 | NUR ---
SHIFT SUMMARY PT SLEPT OFF AND ON THROUGHOUT THE NIGHT. PT REPORTING PAIN TO RIGHT KNEE. MEDICATED PER EMAR. ICE PACKS PROVIDED. SOME SWELLING NOTED TO R KNEE. DRESSING C/D/I TO R HEEL AND COCCYX. LEFT BKA. PT REPORTS HE HAS NOT BEEN OUT OF BED SINCE ADMISSION. INCONTINENT OF BOWEL AND BLADDER. ONE LOOSE STOOL AT START OF SHIFT. IMMODIUM GIVEN BY DAY RN. NO FURTHER BM'S. SKIN IN GROIN/BUTTOCKS IS RED AND EXCORIATED. BARRIER CREAM APPLIED. VITAL SIGNS STABLE. NO ACUTE CHANGES THIS EVENING.
--- NOTE | 2021-03-25 17:23 | NUR ---
SHIFT SUMMARY PT IS AAOX 4, ABLE TO MAKE NEEDS KNOWN. COMPLIANT WITH MEDICATION REGIMEN. REMAINS ON RA, NO DISTRESS NOTED. NO CPMLPAINTS VOICED. BED IN LOWEST POSITION. CALL LIGHT IN REACH.
--- NOTE | 2021-03-26 05:04 | NUR ---
SHIFT SUMMARY PT SLEPT MUCH OF THE NIGHT. REPORTED PAIN TO RLE, MOSTLY R KNEE. MEDICATED PER EMAR. CHRIS AREA VERY EXCORIATED. BARRIER CREAM APPLIED. NEW MEPILEX DRESSINGS PLACED. PT HAD A LARGE SOFT BOWEL MOVEMENT THIS EVENING. LBKA AND R FOOT AMPUTATED. PT HAS REMAINED IN THE BED. AWAITING PLACEMENT. PT CAN NO LONGER CARE FOR HIMSELF OR HIS AT HOME. VITAL SIGNS STABLE. WILL CONTINUE TO MONITOR.
--- NOTE | 2021-03-27 04:30 | NUR ---
SHIFT SUMMARY PT AOX3 AT TIMES BUT HAS SOME CONFUSION ABOUT CERTAIN THINGS. PT C/O PAIN AND DIARRHEA, MEDICATED PER EMAR. PT HAD RUNNY STOOLS AT THE START OF THIS SHIFT AND WAS CLEANED UP. WOUND CARE PROVIDED TO SOILED DRESSING ON COCCYX AREA. PT RESTED WELL WITH A RISE AND FALL OF CHEST THIS SHIFT, CURRENTLY AWAKE IN BED. PT DENIES ANY OTHER NEEDS AT THE MOMENT, WILL CONTINUE TO MONITOR UNTIL REPORT IS GIVEN.
--- NOTE | 2021-03-28 05:03 | NUR ---
SHIFT SUMMARY PT AOX2-3 AT TIMES WITH SOME CONFUSION THIS SHIFT. PT WAS ASLEEP AT THE START OF THIS SHIFT AND EDUCATED OFTEN ABOUT OVEREATING/CONTROLLING BS. PT WAS MEDICATED PER EMAR AND RESTED SOME THIS SHIFT WITHOUT DISTRESS, SNORING HEARD UPON ROUNDS. PT CURRENTLY AWAKE AND JUST CLEANED FROM A LARGE BM, DENIES ANY OTHER NEEDS AT THE MOMENT. THIS NURSE WILL CONTINUE TO MONITOR UNTIL REPORT IS GIVEN.
--- NOTE | 2021-03-28 18:08 | NUR ---
PT AAOX 3 ABLE TO MAKE NEEDS KNOWN. REMAINS ON RA NO DISTRESS NOTED. NO COMPLAINT OR CONCERN VOICED. CALL LIGHT IN REACH. BED IN LOWEST POSITION. STAFF ASSISTED PT WITH ADL'S NEEDED.
--- NOTE | 2021-03-29 06:51 | NUR ---
SHIFT SUMMARY PT AOX3 AND WAS ASLEEP AT THE START OF THIS SHIFT. PT HAD ONE LOOSE STOOL THIS SHIFT AND MEDICATED PER EMAR. PT WAS COOPERATIVE WITH CARE AND COMPLAINT WITH SNAKCS. PT RESTED WELL WITH RISE AND FALL OF CHEST NO S/S OF DISTRESS. WILL CONTINUE TO MONITOR UNITL REPORT IS GIVEN.
--- NOTE | 2021-03-29 16:44 | NUR ---
SHIFT SUMMARY PT AxOx3 WITH INTERMITTENT CONFUSION. PT IS PLEASANT AND COOPERATIVE WITH CARE. REPORTED PAIN IN R LEG/HIP TODAY. MEDICATED PER EMAR WITH REPORTED RELIEF. PT HAD PHYSICAL THERAPY TODAY. MEPILEX CHANGED ON R FOOT. PT STILL HAVING LOOSE STOOLS TODAY. PT CURRENTLY AWAITING PLACEMENT AT [facility]. VITALS REVIEWED. PT RESTING IN BED AT THIS TIME WITH CALL LIGHT IN REACH. DENIES ANY NEEDS. BED IN LOW POSITION.
--- NOTE | 2021-03-30 06:24 | NUR ---
SHIFT SUMMARY PT AOX3 AT TIMES AND COOPERATIVE WITH CARE THIS SHIFT. PT RESTED WELL WITH RISE AND FALL OF CHEST NO S/S OF DISTRESS. PT CURRENTLY IN BED AND DENIES ANY OTHER NEEDS, WILL CONTINUE TO MONITOR UNTIL REPORT IS GIVEN.
--- NOTE | 2021-03-30 16:57 | NUR ---
SHIFT SUMMARY PT IS AAOX4 BUT DOES HAD PERIODS OF CONFUSION AND FORGETFULNESS NOTED. HE HAS BEEN VERY UNCOMFORTABLE ON TODAY AND C/O PAIN CHRONIC TO RIGHT KNEE. SITE WARM AND TENDER TO TOUCH. FATMATAED AND HE ORDERED A ULTRASOUND OF R KNEE THAT SHOWED SWEELING AND FLUID COLLECTION NOTED AND POSSIBLE INFECTION. NEW CONSULT PLACED TO ORTHO DR. MACKENZIE AND AWAITING TO BE SEEN. INCONTINENT OF B/B AND PLACED ON A CONDOM CATH TO BEDSIDE DRAINAGE BAG. VSS. NAD NOTED. NO C/O SOB, OR N/V VOICED. TOLERATED ALL MEALS. WILL CONTINUE TO MONITOR IN CARE UNTIL NEW ONCOMING NURSE ARRIVAL.
--- NOTE | 2021-03-31 05:06 | NUR ---
SHIFT SUMMARY PT AOX3 AND WAS ASLEEP AT THE START OF THIS SHIFT. PT WAS EDUCATED AGAIN ABOUT HAVING A ADA DIET AND NOT BEING ABLE TO SNACK OFTEN. PT WAS UPSET AFTER NOT GETTING A 4TH SANDWICH AND STATES THE CONDOM CATH JUST CAME APART TWICE. AFTER THE THIRD "ACCIDENT" A BIGGER ATTENDS WAS PLACED AND URINAL AT BEDSIDE TO HELP PT REMAIN CONTINENT AND INDEPENDENT. PT DID NOT REST MOST OF THIS SHIFT BUT CURRENTLY ASLEEP. PT HAS RISE AND FALL OF CHEST, NO S/S OF DISTRESS, WILL CONTINUE TO MONITOR UNTIL REPORT IS GIVEN.
--- NOTE | 2021-03-31 18:11 | NUR ---
SHIFT SUMMARY PT IS AAOX4 ON TODAY. A LOT LESS CONFUSED. SMALL PERIODS OF FORGETFULLNESS. HAD C/O PAIN TO THE RIGHT KNEE AND MEDICATED MULTIPLE TIMES WITH NORCO, TYLENOL, AND ADVIL. VSS. NAD NOTED. INCONTINENT OF B/B AND APPENDS IN PLACE. NO C/O SOB , N/V OR DISCOMFORT VOICED. WILL CONTINUE TO MONITOR IN CARE. CALL LIGHT WITHIN REACH.
--- NOTE | 2021-04-01 05:50 | NUR ---
SHIFT SUMMARY PT AOX3 AT TIMES AND WAS ASLEEP AT THE START OF THIS SHIFT. PT WAS MEDICATED FOR PAIN ON PREVIOUS SHIFT RIGHT AT SHIFT CHANGE BUT CALLED FOR MORE PAIN MEDICATION AT 1900. PT HAD A SOFT LARGE BM AT SHIFT CHANGE AND SNACKS OFTEN UNTIL BECOMING SICK TO THEIR STOMACH. PT EDUCATED ON HEALTHY CHOICES AND REMINDED OF ADA DIET PLUS HIGH BS READINGS. PT WAS UPSET BUT VERBALIZED UNDERSTANDING. PT RESTED WELL THIS SHIFT WITH TWO ITEMS FOR A SNACK AND NO MORE LARGE BMs. PT CURRENTLY WATCHING TV WITH FRESH WATER AT BEDSIDE AND DENIES ANY OTHER NEEDS AT THE MOMENT. WILL CONTINUE TO MONITOR UNTIL REPORT IS GIVEN.
[2021-04-01 14:57] LABS: Influenza A, PCR NEGATIVE (NEGATIVE); Influenza B, PCR NEGATIVE (NEGATIVE); Resp Syncytial Virus, PCR NEGATIVE (NEGATIVE); SARS-Cov-2 (COVID-19) PCR, MMC NEGATIVE (NEGATIVE)
--- NOTE | 2021-04-01 16:25 | NUR ---
SHIFT SUMMARY/DISCHARGE NOTE PT WAS AAOX4. ABLE TO ANSWER QUESTIONS AND ASK APPROPRIOTLY. HE DID HAVE SOME C/O PAIN MULTIPLE TIMES TODAY AND WAS MEDICATE WITH NORCO X 1 AND ADVIL X1 WELL. NAD NOTED. HAD NO C/O SOB N/V VOICED. DID HAVE SOME DISCOMT AND A HARD TIME TRYING TO GET THE PATIENT TO THE WHEELCHAIR WITH THE ASSIST OF SUPERVISOR SEWER SYSTEM AND WHEELCHAIR TECH. VSS. DID HAVE A NEW DRESSING PLACED TO HIS SACRUM AND REPORT CALLED TO THE FACILITY OF [facility] AT [phone] AND SPOKE WITH BRIEN JOSEPH. GAVE ALL INFORMATION AND DETAILS OF HISTORY. TRANSPORTED PER [facility].
== END 2021-04-01 16:24 | DRG 871 ==
LOC: ER 15:12 → PCU 22:34 → MEDS 22:34 → PCU 22:40 → MEDS 03-19 15:00
PROVIDERS: Family Medicine; Student in an Organized Health Care Education/Training Program; ADMIT Internal Medicine
DX: A41.9 Sepsis, unspecified organism (principal); E11.10 Type 2 diabetes mellitus with ketoacidosis without coma; J18.9 Pneumonia, unspecified organism; R64 Cachexia; Z68.1 Body mass index [BMI] 19.9 or less, adult; E44.1 Mild protein-calorie malnutrition; E87.3 Alkalosis; N39.0 Urinary tract infection, site not specified; E78.5 Hyperlipidemia, unspecified; G47.00 Insomnia, unspecified; D64.9 Anemia, unspecified; E11.42 Type 2 diabetes mellitus with diabetic polyneuropathy; Z89.522 Acquired absence of left knee; I10 Essential (primary) hypertension; Z87.891 Personal history of nicotine dependence; Z79.899 Other long term (current) drug therapy; E83.39 Other disorders of phosphorus metabolism; Z88.6 Allergy status to analgesic agent; Z88.8 Allergy status to other drugs, medicaments and biological substances; M71.161 Other infective bursitis, right knee; I25.10 Atherosclerotic heart disease of native coronary artery without angina pectoris; Z98.890 Other specified postprocedural states; Z89.421 Acquired absence of other right toe(s); M85.861 Other specified disorders of bone density and structure, right lower leg; M70.51 Other bursitis of knee, right knee
CPT/HCPCS: 0241U; 36415; 71045; 73560-RT; 76536; 76882; 80048; 80053; 80069; 81001; 82010; 82803; 82947; 83036; 83605; 83735; 84100; 84484; 85025; 87040; 87077; 87086; 87186; 90686; 93005; 93010; 94760; 96365; 97110; 97110-CQ; 97162; 97530; 97530-CQ; 99285-25; A9270; C1751; J0696; J1650; J1815; J3411; J3475; J3480; J7030; J7040; J7042; J7050; J7060; J7120

== ENCOUNTER → 2021-07-28 | Outpatient (CLI) | payer MEDICARE, OTHER ==
[~2021-07-28] MED LIST changes: +ACET325 PO; +ASPI81CH PO; +ATOR10 PO; +BASAGLAR K100 UNIT/3 SC; +Cleocin HCl150 MG PO; +GABA100 PO; +Vitamin D PO
[2021-07-28 10:59] LABS: Hematocrit 36.2 % (37.0-53.0); Hemoglobin 11.3 g/dL (13.5-17.5); Mean Corpuscular HGB 28.8 pg (26.0-34.0); Mean Corpuscular HGB Conc 31.2 g/dL (31.5-36.5); Mean Corpuscular Volume 92 fL (80-100); Mean Platelet Volume 9.5 fL (9.1-12.4); Platelet Count 178 K/mm3 (150-400); RDW Coefficient Variation 13.3 % (11.7-14.2); RDW Standard Deviation 44.6 fL (35.1-46.3); Red Blood Cell Count 3.92 M/mm3 (4.30-5.90); White Blood Cell Count 7.47 K/mm3 (4.00-11.30)
[2021-07-28 13:36] LABS: Bun/Creatinine Ratio 44.7 (12.0-20.0); Creatinine, Blood 0.85 mg/dL (0.60-1.20); Potassium, Blood 4.4 mmol/L (3.5-5.5)
== END | disposition home or self-care (01) ==
LOC: LAB RH 10:13 → EDSTATUS 15:19
PROVIDERS: Internal Medicine
DX: A41.9 Sepsis, unspecified organism (principal); I87.2 Venous insufficiency (chronic) (peripheral); E88.89 Other specified metabolic disorders
CPT/HCPCS: 80048; 85027

== ENCOUNTER 2021-11-07 15:36 | Emergency (ER) | payer MEDICARE, OTHER ==
[~2021-11-07] VITALS: Ht 188 cm; Wt 90.7 kg
[~2021-11-07 15:36] MED LIST changes: -Cleocin HCl150 MG PO
[2021-11-07] MEDS ORDERED: Cleocin HCl150 MG PO (16:09)
== END 2021-11-07 16:45 | disposition home or self-care (01) ==
LOC: ER 15:36
DX: T81.89XA Other complications of procedures, not elsewhere classified, initial encounter (principal); S91.301A Unspecified open wound, right foot, initial encounter; Y83.5 Amputation of limb(s) as the cause of abnormal reaction of the patient, or of later complication, without mention of misadventure at the time of the procedure; I25.10 Atherosclerotic heart disease of native coronary artery without angina pectoris; E11.51 Type 2 diabetes mellitus with diabetic peripheral angiopathy without gangrene; I10 Essential (primary) hypertension; F17.200 Nicotine dependence, unspecified, uncomplicated; Z79.4 Long term (current) use of insulin; Z79.899 Other long term (current) drug therapy; Z89.512 Acquired absence of left leg below knee
CPT/HCPCS: A9270

== ENCOUNTER → 2022-02-22 | Outpatient (CLI) | payer MEDICARE, OTHER ==
[~2022-02-22] MED LIST changes: +Cleocin HCl150 MG PO
[2022-02-22 15:58] LABS: BASOPHILS ABSOLUTE AUTO 0.11 K/mm3 (0.00-0.23); BASOPHILS PERCENT AUTO 1 % (0-2); EOSINOPHILS ABSOLUTE AUTO 0.38 K/mm3 (0.00-0.68); EOSINOPHILS PERCENT AUTO 4 % (0-6); Hematocrit 39.5 % (37.0-53.0); Hemoglobin 12.7 g/dL (13.5-17.5); IMMATURE GRAN ABSOLUTE AUTO 0.03 K/mm3 (0.00-0.10); IMMATURE GRAN PERCENT AUTO 0 % (0-1); LYMPHOCYTES PERCENT AUTO 29 % (21-46); MONOCYTES ABSOLUTE AUTO 0.71 K/mm3 (0.16-1.47); MONOCYTES PERCENT AUTO 7 % (4-13); Mean Corpuscular HGB 27.9 pg (26.0-34.0); Mean Corpuscular HGB Conc 32.2 g/dL (31.5-36.5); Mean Corpuscular Volume 87 fL (80-100); Mean Platelet Volume 10.2 fL (9.1-12.4); NEUTROPHILS ABSOLUTE AUTO 6.04 K/mm3 (1.96-9.15); NEUTROPHILS PERCENT AUTO 59 % (41-73); Platelet Count 366 K/mm3 (150-400); RDW Coefficient Variation 15.8 % (11.7-14.2); RDW Standard Deviation 50.4 fL (35.1-46.3); Red Blood Cell Count 4.55 M/mm3 (4.30-5.90); White Blood Cell Count 10.27 K/mm3 (4.00-11.30)
== END | disposition home or self-care (01) ==
LOC: LAB SHORT 12:00 → LAB 12:00 → LAB FUT 02-22 11:35 → EDSTATUS 02-22 11:35
PROVIDERS: Family Medicine
DX: E11.42 Type 2 diabetes mellitus with diabetic polyneuropathy (principal)
CPT/HCPCS: 83036; 85025

== ENCOUNTER → 2022-03-10 | Outpatient (CLI) | payer MEDICARE, OTHER ==
[2022-03-10 19:26] LABS: Albumin, Blood 2.8 g/dL (3.4-5.0); Albumin/Globulin Ratio 0.6 (0.8-1.8); Bilirubin, Total 0.5 mg/dL (0.1-1.0); Bun/Creatinine Ratio 53.5 (12.0-20.0); Calcium, Blood 9.2 mg/dL (8.5-10.1); Creatinine, Blood 0.64 mg/dL (0.60-1.20); Globulin, Blood 4.7 g/dL (2.2-4.0); Potassium, Blood 3.6 mmol/L (3.5-5.5); Total Protein, Blood 7.5 g/dL (6.4-8.2)
== END | disposition home or self-care (01) ==
LOC: LAB SHORT 16:00 → LAB 16:00
PROVIDERS: Family Medicine
DX: R63.0 Anorexia (principal)
CPT/HCPCS: 80053; 84134